=== PATIENT | female | born 1960 | race Caucasian/White ===

== ENCOUNTER 2016-09-29 11:27 | Outpatient (CLI) | payer OTHER ==
--- NOTE | 2016-10-02 15:25 | Mammography Report ---
DIGITAL SCREENING MAMMOGRAM: 09/29/2016 CLINICAL INDICATION: A 55-year-old with history of benign right breast biopsy, for screening. COMPARISON: 12/2014, 10/2013, 09/2012, 01/2011, 07/2009, 04/2008. TECHNIQUE: Routine CC and MLO projections were obtained of the breasts. FINDINGS: Parenchymal tissue within the breasts is predominantly fatty replaced. There are no domina nt masses, suspicious microcalcifications, or secondary signs of malignancy. In comparison to the pre vious studies, there are no significant changes. IMPRESSION: NO MAMMOGRAPHIC EVIDENCE OF MALIGNANCY. NO SIGNIFICANT INTERVAL CHANGES. RECOMMENDATION: Screening mammography is recommended annually. BIRADS category 1 - negative. STANDARD QUALIFYING STATEMENTS 1. This examination was reviewed with the aid of Computed-Aided Detection (CAD). 2. A negative or benign imaging report should not delay biopsy if clinically suspicious findings are present. Consider surgical consultation if warranted. More than 5% of cancers are not identified by i maging. 3. Dense breasts may obscure an underlying neoplasm. JOB #: [id number] EXT JOB #:[id number]
== END 2016-09-29 11:28 | disposition home or self-care (01) ==
LOC: DI.N 11:27
PROVIDERS: ATTEND Physician Assistant Medical
DX: Z12.31 Encounter for screening mammogram for malignant neoplasm of breast (principal)
CPT/HCPCS: 77067

== ENCOUNTER 2016-10-13 10:30 | Outpatient (CLI) | payer OTHER | END 2016-10-13 10:31 | disposition home or self-care (01) | LOC: LAB.WCP 10:30 | PROVIDERS: ATTEND Family Medicine | DX: N39.0 Urinary tract infection, site not specified (principal) | CPT/HCPCS: 87086 ==

== ENCOUNTER 2017-03-24 11:49 | Outpatient (CLI) | payer OTHER ==
--- NOTE | 2017-03-24 13:40 | XRAY Preliminary Report ---
Exam: XR SINUS COMPLETE IMPRESSION: Normal paranasal sinus radiography. [facility] SITE ID: [id number]
--- NOTE | 2017-03-24 13:40 | XRAY Report ---
EXAM: PARANASAL SINUS RADIOGRAPHY 4 VIEWS EXAM DATE: 03/24/2017. CLINICAL HISTORY: Sinusitis. COMPARISONS: None.. TECHNIQUE: Tigre Marks and both lateral views. FINDINGS: Bones: Normal. No fractures or bone lesions. Sinuses: Normal. No opacities or fluid levels. Mastoid Air Cells: Clear. Other: Normal. No soft tissue swelling. IMPRESSION: Normal paranasal sinus radiography. [facility] Referring Provider Line: [phone] SITE ID: [id number]
== END 2017-03-24 11:50 | disposition home or self-care (01) ==
LOC: DI 11:49
PROVIDERS: ATTEND Family Medicine
DX: J32.9 Chronic sinusitis, unspecified (principal)
CPT/HCPCS: 70220

== ENCOUNTER 2017-07-17 16:25 | Outpatient (CLI) | payer OTHER ==
--- NOTE | 2017-07-18 10:15 | MRI Report ---
EXAM: MRI LUMBAR SPINE WITHOUT CONTRAST EXAM DATE: 07/17/2017 05:04 PM. CLINICAL HISTORY: Low back pain. Sharp left lower extremity pain. COMPARISON: 09/06/2010. TECHNIQUE: Multiplanar, multisequence T1-weighted and fluid-sensitive sequences of the lumbar spine f rom T12 to S1 without contrast. Other: None. FINDINGS: Spinal Cord: The conus terminates at L1. The conus medullaris and cauda equina are unremarkable. Alignment: No change in alignment. Bone Marrow: Five oxw-ojk-[id number] lumbar vertebral bodies are assumed. Lumbar vertebral body heights are maintained. No acute marrow edema. Disk Levels/Facets: T12-L1 through L3-L4: Stable findings, no stenosis or disk herniation. L4-L5: No additional disk degeneration. Tiny posterior protrusion with annular fissure is unchanged. No developing stenosis. Negligible facet arthropathy. L5-S1: Stable moderately prominent degenerative disk disease. Shallow bulging annulus. Minimal margin al spurring. Patent central canal. Negligible foraminal narrowing. These findings are stable and ther e is no evidence for focal nerve root compression. Musculature: No acute edema or significant asymmetry. Other: None. IMPRESSION: No acute abnormality or significant change. No developing significant stenosis or focal n eural impingement to explain radiculopathy. Lumbar degenerative changes are stable, most prominent as previously noted at L5-S1. Comment: The following findings are so common in adults without low back pain that while we report th eir presence, they must be interpreted with caution and in the context of the clinical situation. (Re meghan Condek et al, Spine 2001) Prevalence of findings in patients without low back pain: Disk degeneration (any evidence): 92% Disk desiccation/T2 signal loss: 83% Disk height loss: 56% Disk bulge: 64% Disk protrusion: 32% Annular tear/high intensity zone: 38% [facility] Referring Provider Line: [phone] SITE ID: [id number]
== END 2017-07-17 16:26 | disposition home or self-care (01) ==
LOC: DI 16:25
PROVIDERS: ATTEND Physician Assistant Medical
DX: S39.012A Strain of muscle, fascia and tendon of lower back, initial encounter (principal)
CPT/HCPCS: 72148

== ENCOUNTER 2018-04-30 15:13 | Outpatient (CLI) | payer OTHER | END 2018-04-30 15:14 | disposition home or self-care (01) | LOC: SC 15:13 | PROVIDERS: ATTEND Internal Medicine Pulmonary Disease | DX: G47.33 Obstructive sleep apnea (adult) (pediatric) (principal); E66.9 Obesity, unspecified; Z68.33 Body mass index [BMI] 33.0-33.9, adult | CPT/HCPCS: 99203; 99212 ==

== ENCOUNTER 2018-05-19 19:30 | Outpatient (CLI) | payer OTHER | END 2018-05-19 23:59 | disposition home or self-care (01) | LOC: SC 19:30 | PROVIDERS: ATTEND Internal Medicine Pulmonary Disease | DX: G47.33 Obstructive sleep apnea (adult) (pediatric) (principal) | CPT/HCPCS: 95806 ==

== ENCOUNTER 2018-07-08 16:15 | Outpatient (CLI) | payer OTHER | END 2018-07-08 16:16 | disposition home or self-care (01) | LOC: SC 16:15 | PROVIDERS: ATTEND Nurse Practitioner Family | DX: G47.33 Obstructive sleep apnea (adult) (pediatric) (principal) | CPT/HCPCS: 99212; 99214 ==

== ENCOUNTER 2018-10-02 15:20 | Emergency (ER) | payer OTHER ==
[2018-10-02 15:39] VITALS: BP 163/86
--- NOTE | 2018-10-02 16:08 | ED Physician Documentation ---
History of Present Illness - Stated complaint Stated Complaint: CO EXPOSURE - Chief complaint Chief Complaint: General - History obtained from History obtained from: Patient, Family - History of Present Illness Timing: How many days ago (several) Pain level max: 4 Pain level now: 0 - Additonal information Additional information: 57-year-old female presents to the emergency department stating that her furnace was leaking carbon monoxide. She has had intermittent headaches over the past few days. She is currently asymptomatic. Nothing makes it better or worse. Her furnace is now repaired. 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 - Present Medications Home Medications: Ambulatory Orders Medication Instructions Recorded Confirmed Bupropion HCl [Wellbutrin] 100 mg PO DAILY 02/03/13 03/11/14 Hydrochlorothiazide 25 mg PO DAILY 02/03/13 03/11/14 Lansoprazole [Prevacid] 30 mg PO BID 02/03/13 03/11/14 Lisinopril [Prinivil] 20 mg PO BID 02/03/13 03/11/14 lamoTRIgine [LaMICtal] 200 mg PO DAILY 02/03/13 03/11/14 raNITIdine [Zantac] 300 mg PO BID 02/03/13 03/11/14 Zolpidem [Ambien] 5 DAILY PRN 01/26/14 03/11/14 Cholecalciferol (Vitamin D3) 1 tab DAILY 03/11/14 03/11/14 [Vitamin D-3] dexAMETHasone [Decadron] 4 mg PO DAILY #5 tablet 03/11/14 - Allergies Allergies/Adverse Reactions: Allergies Allergy/AdvReac Type Severity Reaction Status Date / Time No Known Drug Allergies Allergy Verified 10/02/18 15:38 - Social History Does the pt smoke?: No Smoking Status: Never smoker Does the pt drink ETOH?: Yes Does the pt have substance abuse?: No PD ED PE NORMAL - Vitals Vital signs reviewed: Yes - General General: Alert and oriented X 3, No acute distress - HEENT HEENT: Moist mucous membranes - Neck Neck: Supple, no meningeal sign - Derm Derm: Warm and dry - Neuro Neuro: Alert and oriented X 3 - Psych Psych: Normal mood, Normal affect Results - Vitals Vitals: Vital Signs - 24 hr 10/02/18 15:37 Temperature 37.2 C Heart Rate 86 Respiratory 18 Rate Blood Pressure 163/86 H O2 Saturation 99 Oxygen O2 Source Room air - Labs Labs: Laboratory Tests 10/02/18 15:49 VBG Total Hgb 12.9 VBG Oxyhemoglobin 63 L VBG Carboxyhemoglobin 1.4 VBG Methemoglobin 0.3 PD MEDICAL DECISION MAKING - ED course Complexity details: considered differential, d/w patient ED course: Patient is asymptomatic. Has a normal carbon monoxide level. No emergency medical condition at this time. Will follow-up with PCP as needed. Patient counseled regarding signs and symptoms for which I believe and urgent re- evaluation would be necessary. Patient with good understanding of and agreement to plan and is comfortable going home at this time This document was made in part using voice recognition software. While efforts are made to proofread this document, sound alike and grammatical errors may occur. Departure - Departure Disposition: 01 Home, Self Care Clinical Impression: Carbon monoxide exposure Condition: Good Instructions: ED CO Poisoning Follow-Up: Carlene Gómez PA-C [Primary Care Provider] - As Needed Comments: Return if you worsen. Your carbon monoxide levels are normal in your blood.
== END 2018-10-02 16:16 | disposition home or self-care (01) ==
LOC: ED 15:20
DX: Z77.29 Contact with and (suspected) exposure to other hazardous substances (principal); I10 Essential (primary) hypertension
CPT/HCPCS: 36415; 82375; 99282; 99283

== ENCOUNTER 2018-10-04 17:28 | Outpatient (CLI) | payer OTHER | END 2018-10-04 23:59 | disposition home or self-care (01) | LOC: LAB.R 17:28 | PROVIDERS: ATTEND Family Medicine | DX: R30.0 Dysuria (principal) | CPT/HCPCS: 87086; 87181 ==

== ENCOUNTER 2018-10-06 12:14 | Emergency (ER) | payer OTHER ==
--- NOTE | 2018-10-06 14:13 | ED Physician Documentation ---
History of Present Illness - Stated complaint Stated Complaint: FEMALE - Chief complaint Chief Complaint: General - History obtained from History obtained from: Patient - Additonal information Additional information: Patient is a 57-year-old female who was diagnosed with urinary tract infection 2 days ago started on Bactrim which she has been compliantly taking until earlier today. Patient reports mild improvement of dysuria and other urinary complaints, however, is now Experiencing worsening suprapubic tenderness, low back pain worse on the right, subjective fever, chills, generalized weakness and muscle aches. Patient reports nausea without vomiting. No changes in bowel movements. Patient also reports exposure to carbon monoxide last week and was tested for such which returned within normal limits. No further exposures. No other improving or worsening factors noted. Review of Systems Constitutional: reports: Fever, Chills, Myalgias GI: reports: Abdominal Pain, Nausea. denies: Vomiting, Diarrhea : reports: Dysuria, Frequency, Hesitancy Musculoskeletal: reports: Back pain Neurologic: reports: Generalized weakness. 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 - Present Medications Home Medications: Ambulatory Orders Medication Instructions Recorded Confirmed Hydrochlorothiazide 25 mg PO DAILY 02/03/13 10/06/18 Lansoprazole [Prevacid] 30 mg PO BID 02/03/13 10/06/18 Lisinopril [Prinivil] 20 mg PO BID 02/03/13 10/06/18 lamoTRIgine [LaMICtal] 200 mg PO DAILY 02/03/13 10/06/18 raNITIdine [Zantac] 300 mg PO BID 02/03/13 10/06/18 Cholecalciferol (Vitamin D3) 1 tab DAILY 03/11/14 10/06/18 [Vitamin D-3] - Allergies Allergies/Adverse Reactions: Allergies Allergy/AdvReac Type Severity Reaction Status Date / Time No Known Drug Allergies Allergy Verified 10/02/18 15:38 - Social History Does the pt smoke?: No Smoking Status: Never smoker Does the pt drink ETOH?: Yes Does the pt have substance abuse?: No PD ED PE NORMAL - Vitals Vital signs reviewed: Yes - General General: Alert and oriented X 3, No acute distress, Well developed/nourished - HEENT HEENT: Atraumatic, Moist mucous membranes - Neck Neck: Supple, no meningeal sign - Cardiac Cardiac: RRR, No murmur - Respiratory Respiratory: No respiratory distress, Clear bilaterally - Abdomen Abdomen: Soft, Non distended. No: Non tender (Extremely mild suprapubic tenderness) - Back Back: No: No CVA TTP (Right CVA tenderness, mild) - Derm Derm: Normal color, Warm and dry, No rash - Extremities Extremities: No deformity, No tenderness to palpate - Neuro Neuro: Alert and oriented X 3, No motor deficit, No sensory deficit - Psych Psych: Normal mood, Normal affect Results - Vitals Vitals: Vital Signs - 24 hr 10/06/18 10/06/18 12:19 14:55 Temperature 37.0 C 37.1 C Heart Rate 77 65 Respiratory 14 20 Rate Blood Pressure 151/71 H 139/76 H O2 Saturation 100 98 Oxygen O2 Source Room air - Labs Labs: Laboratory Tests 10/06/18 10/06/18 10/06/18 14:40 14:40 14:45 WBC 6.1 RBC 4.54 Hgb 12.8 Hct 39.1 MCV 86.1 MCH 28.2 MCHC 32.7 RDW 17.5 H Plt Count 230 MPV 9.6 Neut # (Auto) 4.2 Lymph # (Auto) 1.5 Lane # (Auto) 0.4 Eos # (Auto) 0.0 Baso # (Auto) 0.0 Absolute Nucleated RBC 0.00 Nucleated RBC % 0.0 Sodium 141 Potassium 3.5 Chloride 104 Carbon Dioxide 26 Anion Gap 11.0 BUN 17 Creatinine 1.1 H Estimated GFR (MDRD) 51 L Glucose 86 Lactic Acid 1.1 Calcium 9.7 Total Bilirubin 0.8 AST 24 ALT 20 Alkaline Phosphatase 61 Total Protein 7.3 Albumin 4.4 Globulin 2.9 Albumin/Globulin Ratio 1.5 Lipase 29 Urine Color Urine Clarity Urine pH Ur Specific [place] Urine Protein Urine Glucose (UA) Urine Ketones Urine Occult Blood Urine Nitrite Urine Bilirubin Urine Urobilinogen Ur Leukocyte Esterase Ur Microscopic Review Urine Culture Comments 10/06/18 14:45 WBC RBC Hgb Hct MCV MCH MCHC RDW Plt Count MPV Neut # (Auto) Lymph # (Auto) Lane # (Auto) Eos # (Auto) Baso # (Auto) Absolute Nucleated RBC Nucleated RBC % Sodium Potassium Chloride Carbon Dioxide Anion Gap BUN Creatinine Estimated GFR (MDRD) Glucose Lactic Acid Calcium Total Bilirubin AST ALT Alkaline Phosphatase Total Protein Albumin Globulin Albumin/Globulin Ratio Lipase Urine Color YELLOW Urine Clarity CLEAR Urine pH 6.5 Ur Specific [place] <=1.005 Urine Protein NEGATIVE Urine Glucose (UA) NEGATIVE Urine Ketones NEGATIVE Urine Occult Blood NEGATIVE Urine Nitrite NEGATIVE Urine Bilirubin NEGATIVE Urine Urobilinogen 0.2 (NORMAL) Ur Leukocyte Esterase NEGATIVE Ur Microscopic Review NOT INDICATED Urine Culture Comments NOT INDICATED PD MEDICAL DECISION MAKING - ED course Complexity details: reviewed results, re-evaluated patient, considered differential, d/w patient ED course: Patient was recently seen by primary care physician and diagnosed with UTI and started on Bactrim. Patient reports subjective fever and chills at home, as well as general myalgias and fatigue. Patient reports that urinary symptoms have improved. Physical exam is relatively unremarkable except for mild suprapubic tenderness consistent with UTI. Patient does have extremely mild right CVA tenderness and do have concern for possible pyelonephritis. Feel less likely that patient is expensing nephrolithiasis, other intra-abdominal infection, or pelvic issue at this time. Patient started on IV fluids, but did not require medications. Screening lab work returned unremarkable including no JUN, leukocytosis, elevation of lactic acid. Urinalysis also returned extremely unremarkable. Do feel that Bactrim is working appropriately. Patient remained afebrile and is otherwise hematologically stable. At this time, do not feel she requires IV antibiotics or hospitalization, but can continue oral antibiotics as prescribed at home. Discussed results and recommendations with patient including use of medications, other supportive cares, return precautions, appropriate follow-up. Patient voiced understanding and is comfortable with discharge plan. Departure - Departure Disposition: 01 Home, Self Care Clinical Impression: Urinary tract infection Condition: Good Instructions: ED UTI Cystitis Female Follow-Up: Carlene Gómez PA-C [Primary Care Provider] - Comments: Please continue antibiotics as prescribed, as well as other home medications. Recommend hydration with Powerade/Gatorade, healthy diet, rest, and follow-up with primary care physician in next 2 to 3 days. Return to ED sooner if experience worsening symptoms or have other concerns.
[2018-10-06] MEDS ORDERED: SODIUM CHLORIDE 0.9% 1,000 ML IV ONE (14:18)
[2018-10-06 14:52] LABS: BASOPHILS % (AUTO) 0.3 %; EOSINOPHILS % (AUTO) 0.3 %; HGB - HEMOGLOBIN 12.8 g/dL (12.0-16.0); LYMPHOCYTES # (AUTO) 1.5 10^3/uL (1.5-3.5); LYMPHOCYTES % (AUTO) 24.4 %; MEAN CORPUSCULAR HEMOGLOBIN 28.2 pg (27.0-31.0); MEAN CORPUSCULAR HGB CONC 32.7 g/dL (32.0-36.0); MEAN CORPUSCULAR VOLUME 86.1 fL (81.0-99.0); MEAN PLATELET VOLUME 9.6 fL (7.9-10.8); MONOCYTES # (AUTO) 0.4 10^3/uL (0.0-1.0); MONOCYTES % (AUTO) 6.1 %; NEUTROPHILS # (AUTO) 4.2 10^3/uL (1.5-6.6); NEUTROPHILS % (AUTO) 68.6 %; PLT - PLATELET COUNT 230 10^3/uL (130-450); RED BLOOD COUNT 4.54 10^6/uL (4.20-5.40); RED CELL DISTRIBUTION WIDTH 17.5 % (12.0-15.0); WHITE BLOOD COUNT 6.1 x10^3/uL (4.8-10.8)
[2018-10-06 14:55] LABS: BILIRUBIN,URINE NEGATIVE (NEGATIVE); GLUCOSE, URINE (UA) NEGATIVE (NEGATIVE); KETONES,URINE (UA) NEGATIVE (NEGATIVE); LEUKOCYTE ESTERASE, URINE NEGATIVE (NEGATIVE); NITRITE,URINE NEGATIVE (NEGATIVE); OCCULT BLOOD,URINE NEGATIVE (NEGATIVE); PH,URINE 6.5 PH (5.0-7.5); PROTEIN,URINE NEGATIVE (NEGATIVE); UROBILINOGEN,URINE 0.2 (NORMAL) E.U./dL (NORMAL)
[2018-10-06 14:56] LABS: CLARITY,URINE CLEAR (CLEAR)
[2018-10-06 15:11] LABS: ALBUMIN 4.4 g/dL (3.2-5.5); ALBUMIN/GLOBULIN RATIO 1.5 (1.0-2.2); BILIRUBIN,TOTAL 0.8 mg/dL (0.2-1.0); CALCIUM 9.7 mg/dL (8.5-10.3); CREATININE 1.1 mg/dL (0.4-1.0); TOTAL PROTEIN 7.3 g/dL (6.7-8.2)
[2018-10-06 15:52] VITALS: BP 140/77
== END 2018-10-06 16:03 | disposition home or self-care (01) ==
LOC: ED 12:14
DX: N39.0 Urinary tract infection, site not specified (principal); I10 Essential (primary) hypertension
CPT/HCPCS: 36415; 80053; 81001; 81003; 83605; 83690; 85025; 87040; 87086; 96360; 99284

== ENCOUNTER 2019-03-17 10:24 | Outpatient (CLI) | payer OTHER ==
[2019-03-17 12:04] LABS: BASOPHILS % (AUTO) 0.7 %; EOSINOPHILS % (AUTO) 0.7 %; HGB - HEMOGLOBIN 11.7 g/dL (12.0-16.0); LYMPHOCYTES # (AUTO) 1.4 10^3/uL (1.5-3.5); MEAN CORPUSCULAR HEMOGLOBIN 26.7 pg (27.0-31.0); MEAN CORPUSCULAR HGB CONC 31.4 g/dL (32.0-36.0); MEAN CORPUSCULAR VOLUME 85.2 fL (81.0-99.0); MEAN PLATELET VOLUME 10.4 fL (7.9-10.8); MONOCYTES # (AUTO) 0.4 10^3/uL (0.0-1.0); MONOCYTES % (AUTO) 6.6 %; NEUTROPHILS % (AUTO) 67.8 %; PLT - PLATELET COUNT 248 10^3/uL (130-450); RED BLOOD COUNT 4.38 10^6/uL (4.20-5.40); RED CELL DISTRIBUTION WIDTH 15.2 % (12.0-15.0); WHITE BLOOD COUNT 5.9 x10^3/uL (4.8-10.8)
[2019-03-17 12:30] LABS: ALBUMIN 4.3 g/dL (3.2-5.5); ALBUMIN/GLOBULIN RATIO 1.4 (1.0-2.2); ALKALINE PHOSPHATASE 61 IU/L (42-121); ALT ALANINE AMINOTRANSFERASE 18 IU/L (10-60); AST ASPARTATE AMINOTRANSFERASE 21 IU/L (10-42); BILIRUBIN,TOTAL 0.9 mg/dL (0.2-1.0); BUN - BLOOD UREA NITROGEN 17 mg/dL (6-20); CALCIUM 9.4 mg/dL (8.5-10.3); CARBON DIOXIDE - CO2 28 mmol/L (21-32); CHLORIDE 104 mmol/L (101-111); CHOL/HDL RATIO 3.5 (<4.4); CHOLESTEROL 220 mg/dL; GFR - MDRD 57 (>89); GLUCOSE 92 mg/dL (70-100); HDL CHOLESTEROL 63 mg/dL; LDL CHOLESTEROL,CALCULATED 145 mg/dL; LDL/HDL RATIO 2.3 (<4.4); SODIUM 140 mmol/L (135-145); TOTAL PROTEIN 7.3 g/dL (6.7-8.2); VLDL CHOLESTEROL 12 mg/dL
== END 2019-03-17 23:59 | disposition home or self-care (01) ==
LOC: LAB.WCP 10:24
PROVIDERS: ATTEND Physician Assistant Medical
DX: Z00.00 Encounter for general adult medical examination without abnormal findings (principal)
CPT/HCPCS: 36415; 80053; 80061; 83721; 84443; 85025

== ENCOUNTER 2019-08-13 15:43 | Outpatient (CLI) | payer OTHER ==
[2019-08-13 18:46] LABS: BASOPHILS # (AUTO) 0.1 10^3/uL (0.0-0.1); BASOPHILS % (AUTO) 0.7 %; EOSINOPHILS # (AUTO) 0.1 10^3/uL (0.0-0.7); EOSINOPHILS % (AUTO) 0.9 %; HGB - HEMOGLOBIN 10.4 g/dL (12.0-16.0); LYMPHOCYTES # (AUTO) 2.3 10^3/uL (1.5-3.5); LYMPHOCYTES % (AUTO) 31.4 %; MEAN CORPUSCULAR HEMOGLOBIN 24.5 pg (27.0-31.0); MEAN CORPUSCULAR HGB CONC 31.3 g/dL (32.0-36.0); MEAN CORPUSCULAR VOLUME 78.3 fL (81.0-99.0); MEAN PLATELET VOLUME 10.5 fL (7.9-10.8); MONOCYTES # (AUTO) 0.5 10^3/uL (0.0-1.0); NEUTROPHILS # (AUTO) 4.4 10^3/uL (1.5-6.6); NEUTROPHILS % (AUTO) 59.7 %; PLT - PLATELET COUNT 305 10^3/uL (130-450); RED BLOOD COUNT 4.24 10^6/uL (4.20-5.40); RED CELL DISTRIBUTION WIDTH 15.9 % (12.0-15.0); WHITE BLOOD COUNT 7.4 x10^3/uL (4.8-10.8)
[2019-08-13 19:00] LABS: ALBUMIN 4.2 g/dL (3.2-5.5); ALBUMIN/GLOBULIN RATIO 1.5 (1.0-2.2); ALKALINE PHOSPHATASE 70 IU/L (42-121); ALT ALANINE AMINOTRANSFERASE 19 IU/L (10-60); AST ASPARTATE AMINOTRANSFERASE 21 IU/L (10-42); BILIRUBIN,TOTAL 0.5 mg/dL (0.2-1.0); BUN - BLOOD UREA NITROGEN 24 mg/dL (6-20); CALCIUM 9.5 mg/dL (8.5-10.3); CARBON DIOXIDE - CO2 27 mmol/L (21-32); CHLORIDE 102 mmol/L (101-111); CHOLESTEROL 242 mg/dL; CREATININE 0.8 mg/dL (0.4-1.0); GLUCOSE 77 mg/dL (70-100); HDL CHOLESTEROL 61 mg/dL; LDL CHOLESTEROL,CALCULATED 154 mg/dL; LDL/HDL RATIO 2.5 (<4.4); SODIUM 139 mmol/L (135-145); VLDL CHOLESTEROL 27 mg/dL
== END 2019-08-13 23:59 | disposition home or self-care (01) ==
LOC: LAB.WCP 15:43
PROVIDERS: ATTEND Family Medicine
DX: R00.2 Palpitations (principal)
CPT/HCPCS: 36415; 80053; 80061; 81599; 82553; 83721; 84443; 84484; 85025; 85379

== ENCOUNTER 2019-08-18 08:07 | Outpatient (CLI) | payer OTHER ==
--- NOTE | 2019-08-18 09:21 | XRAY Report ---
Reason: PALPITATIONS Procedure Date: 08/18/2019 Accession Number: [id number] / [id number] Procedure: WCP - Chest 2 View X-Ray CPT Code: 08887 Final Report FULL RESULT: PROCEDURE: Chest 2 View X-Ray INDICATIONS: PALPITATIONS TECHNIQUE: 2 view(s) of the chest. COMPARISON: None. FINDINGS: Surgical changes and devices: None. Lungs and pleura: No pleural effusions or pneumothorax. Lungs are clear. Mediastinum: Mediastinal contours are normal. Heart size is normal. Bones and chest wall: No suspicious bony abnormalities. Soft tissues appear unremarkable. IMPRESSION: No acute cardiopulmonary pathology. Reviewed by: Rajinder Joya MD on 08/18/2019 9:20 AM PDT Approved by: Rajinder Joya MD on 08/18/2019 9:20 AM PDT Station ID: [id number]
== END 2019-08-18 23:59 | disposition home or self-care (01) ==
LOC: DI.WCP 08:07
PROVIDERS: ATTEND Family Medicine
DX: R00.2 Palpitations (principal)
CPT/HCPCS: 71046

== ENCOUNTER 2020-02-12 09:57 | Outpatient (CLI) | payer OTHER ==
--- NOTE | 2020-02-12 12:44 | XRAY Report ---
PROCEDURE: Lumbar Spine 2 View INDICATIONS: LOW BACK PAIN TECHNIQUE: 4 views of the lumbar spine were acquired. COMPARISON: 07/17/2017 LS-spine MRI.. FINDINGS: Bones: 5 oei-obg-gsweziu vertebrae are present. There is normal bony alignment. No vertebral body compression fractures. No suspicious bony lesions. There is mild degenerative disc disease along th e thoracolumbar junction and lumbosacral spine to the L5-S1 level where moderate such degenerative ch raymond can be seen. Additionally at this level there is moderate facet osteoarthritis to the degree rosa t the combined influences of disc disease and facet degeneration likely produces mild to moderate spi nal and foraminal stenosis. Quality of visualization is somewhat limited by body habitus. Soft tissues: Overlying bowel gas pattern is normal. No suspicious soft tissue calcifications. IMPRESSION: No compression fracture found. No subluxation seen. Mild degenerative changes superiorly but there is mild to moderate likelihood of spinal and foraminal stenosis at the L5-S1 level from di sc disease and facet osteoarthritis. Reviewed by: Kayode Petit MD on 02/12/2020 12:43 PM PST Approved by: Kayode Petit MD on 02/12/2020 12:43 PM PST Station ID: [id number]
== END 2020-02-12 23:59 | disposition home or self-care (01) ==
LOC: DI.N 09:57
PROVIDERS: ATTEND Family Medicine
DX: M47.817 Spondylosis without myelopathy or radiculopathy, lumbosacral region (principal)

== ENCOUNTER 2020-03-22 08:00 | Outpatient (CLI) | payer OTHER | END 2020-03-22 23:59 | disposition home or self-care (01) | LOC: LAB.N 08:00 | PROVIDERS: ATTEND Nurse Practitioner | DX: R42 Dizziness and giddiness (principal) | CPT/HCPCS: 87275; 87276 ==

== ENCOUNTER 2020-03-22 15:41 | Emergency (ER) | payer OTHER ==
[2020-03-22] MEDS ORDERED: SODIUM CHLORIDE 0.9% 1,000 ML IV STA ×2 (15:58)
--- NOTE | 2020-03-22 16:00 | ED Physician Documentation ---
History of Present Illness - Stated complaint Stated Complaint: LIGHTHEADED, WEAK - Chief complaint Chief Complaint: Neuro - History obtained from History obtained from: Patient - History of Present Illness Timing: How many weeks ago (1) Pain level max: 4 Pain level now: 3 - Additonal information Additional information: 59-year-old female presents to the emergency department stating she feels generally weak over the past week. She states that if she stands for longer than about 15 to 20 minutes at a time she feels very tired and fatigued. Better with rest, worse with walking. No chest pain. No shortness of breath.She was recently placed on Bactrim for phlebitis in the left leg. No fevers. No chills . No cough. No congestion. Occasionally has mild nausea. Has intermittent headaches as well. These are not severe. They are gradual in onset and generally resolve on their own. No other medication changes. Review of Systems Ten Systems: 10 systems reviewed and negative Constitutional: denies: Fever, Chills Nose: denies: Rhinorrhea / runny nose, Congestion Throat: denies: Sore throat Cardiac: denies: Chest pain / pressure, Palpitations Respiratory: denies: Dyspnea, Cough GI: reports: Nausea. denies: Abdominal Pain, Vomiting, Constipation, Diarrhea : denies: Dysuria, Frequency, Hesitancy Skin: denies: Rash Musculoskeletal: denies: Neck pain, Back pain Neurologic: reports: Generalized weakness. 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 - Present Medications Home Medications: Ambulatory Orders Medication Instructions Recorded Confirmed Hydrochlorothiazide 25 mg PO DAILY 02/03/13 03/22/20 lamoTRIgine [LaMICtal] 225 mg PO DAILY 02/03/13 03/22/20 lisinopriL [Prinivil] 20 mg PO BID 02/03/13 03/22/20 Cholecalciferol (Vitamin D3) 1 tab DAILY 03/11/14 03/22/20 [Vitamin D-3] - Allergies Allergies/Adverse Reactions: Allergies Allergy/AdvReac Type Severity Reaction Status Date / Time No Known Drug Allergies Allergy Verified 03/22/20 15:48 - Social History Does the pt smoke?: No Smoking Status: Never smoker Does the pt drink ETOH?: Yes Does the pt have substance abuse?: No PD ED PE NORMAL - Vitals Vital signs reviewed: Yes - General General: Alert and oriented X 3, No acute distress, Well developed/nourished - HEENT HEENT: PERRL, Ears normal, Moist mucous membranes, Pharynx benign - Neck Neck: Supple, no meningeal sign, No bony TTP - Cardiac Cardiac: RRR, No murmur, Strong equal pulses - Respiratory Respiratory: No respiratory distress, Clear bilaterally - Abdomen Abdomen: Soft, Non tender, Non distended - Derm Derm: Warm and dry, No rash - Extremities Extremities: No edema, No calf tenderness / cord - Neuro Neuro: Alert and oriented X 3 - Psych Psych: Normal mood, Normal affect Results - Vitals Vitals: Vital Signs - 24 hr 03/22/20 03/22/20 03/22/20 15:45 16:13 17:00 Temperature 36.0 C L Heart Rate 77 74 75 Respiratory 14 15 17 Rate Blood Pressure 147/70 H 133/60 H 135/73 H O2 Saturation 100 100 99 03/22/20 03/22/20 18:12 19:26 Temperature 36.0 C L Heart Rate 77 83 Respiratory 14 16 Rate Blood Pressure 129/66 120/71 O2 Saturation 99 100 Oxygen O2 Source Room air - EKG (time done) 1555 Rate: Rate (enter#) (74) Rhythm: NSR [place]: Normal Intervals: Normal [place] QRS: Normal Ischemia: Normal ST segments - Labs Labs: Laboratory Tests 03/22/20 03/22/20 03/22/20 16:05 16:05 16:05 WBC 6.7 RBC 4.37 Hgb 10.8 L Hct 34.2 L MCV 78.3 L MCH 24.7 L MCHC 31.6 L RDW 18.0 H Plt Count 289 MPV 9.5 Neut # (Auto) 4.3 Lymph # (Auto) 1.9 [place] # (Auto) 0.4 Eos # (Auto) 0.0 Baso # (Auto) 0.0 Absolute Nucleated RBC 0.00 Nucleated RBC % 0.0 Sodium 140 Potassium 3.7 Chloride 101 Carbon Dioxide 24 Anion Gap 15.0 H BUN 23 H Creatinine 1.2 H Estimated GFR (MDRD) 46 L Glucose 91 Calcium 9.9 Phosphorus 3.5 Magnesium 2.4 Total Bilirubin 0.2 AST 20 ALT 16 Alkaline Phosphatase 72 Troponin I High Sens 2.6 Total Protein 7.7 Albumin 4.6 Globulin 3.1 Albumin/Globulin Ratio 1.5 Urine Color Urine Clarity Urine pH Ur Specific [place] Urine Protein Urine Glucose (UA) Urine Ketones Urine Occult Blood Urine Nitrite Urine Bilirubin Urine Urobilinogen Ur Leukocyte Esterase Ur Microscopic Review Urine Culture Comments 03/22/20 17:55 WBC RBC Hgb Hct MCV MCH MCHC RDW Plt Count MPV Neut # (Auto) Lymph # (Auto) [place] # (Auto) Eos # (Auto) Baso # (Auto) Absolute Nucleated RBC Nucleated RBC % Sodium Potassium Chloride Carbon Dioxide Anion Gap BUN Creatinine Estimated GFR (MDRD) Glucose Calcium Phosphorus Magnesium Total Bilirubin AST ALT Alkaline Phosphatase Troponin I High Sens Total Protein Albumin Globulin Albumin/Globulin Ratio Urine Color YELLOW Urine Clarity CLEAR Urine pH 6.0 Ur Specific [place] 1.010 Urine Protein NEGATIVE Urine Glucose (UA) NEGATIVE Urine Ketones NEGATIVE Urine Occult Blood NEGATIVE Urine Nitrite NEGATIVE Urine Bilirubin NEGATIVE Urine Urobilinogen 0.2 (NORMAL) Ur Leukocyte Esterase NEGATIVE Ur Microscopic Review NOT INDICATED Urine Culture Comments NOT INDICATED PD MEDICAL DECISION MAKING - ED course Complexity details: reviewed results, re-evaluated patient, considered differential, d/w patient ED course: No acute abnormalities on laboratory testing. Feels better after IV fluids. We will have her stop the Bactrim. No cellulitis on the legs. This could be contributing to her symptoms. Patient is well-appearing, nontoxic. Afebrile. No evidence of sepsis. Ambulating without difficulty. Steady gait. No neurological deficits. Normal cerebellar testing. Patient counseled regarding signs and symptoms for which I believe and urgent re-evaluation would be necessary. Patient with good understanding of and agreement to plan and is comfortable going home at this time This document was made in part using voice recognition software. While efforts are made to proofread this document, sound alike and grammatical errors may occur. Departure - Departure Disposition: 01 Home, Self Care Clinical Impression: Weakness, Dehydration Condition: Good Instructions: ED Dehydration Follow-Up: Carlene Gómez PA-C [Primary Care Provider] - Within 1 week Comments: Drink plenty of fluid. Return if you worsen. You can stop the bactrim as well. Discharge Date/Time: 03/22/20 19:31
[2020-03-22 16:10] LABS: BASOPHILS % (AUTO) 0.4 %; EOSINOPHILS % (AUTO) 0.6 %; HGB - HEMOGLOBIN 10.8 g/dL (12.0-16.0); LYMPHOCYTES # (AUTO) 1.9 10^3/uL (1.5-3.5); LYMPHOCYTES % (AUTO) 28.2 %; MEAN CORPUSCULAR HEMOGLOBIN 24.7 pg (27.0-31.0); MEAN CORPUSCULAR HGB CONC 31.6 g/dL (32.0-36.0); MEAN CORPUSCULAR VOLUME 78.3 fL (81.0-99.0); MEAN PLATELET VOLUME 9.5 fL (7.9-10.8); MONOCYTES # (AUTO) 0.4 10^3/uL (0.0-1.0); MONOCYTES % (AUTO) 6.3 %; NEUTROPHILS # (AUTO) 4.3 10^3/uL (1.5-6.6); NEUTROPHILS % (AUTO) 64.2 %; PLT - PLATELET COUNT 289 10^3/uL (130-450); RED BLOOD COUNT 4.37 10^6/uL (4.20-5.40); WHITE BLOOD COUNT 6.7 x10^3/uL (4.8-10.8)
[2020-03-22 16:26] LABS: ALBUMIN 4.6 g/dL (3.2-5.5); ALBUMIN/GLOBULIN RATIO 1.5 (1.0-2.2); BILIRUBIN,TOTAL 0.2 mg/dL (0.2-1.0); CALCIUM 9.9 mg/dL (8.5-10.3); CREATININE 1.2 mg/dL (0.4-1.0); MAGNESIUM 2.4 mg/dL (1.7-2.8); PHOSPHORUS 3.5 mg/dL (2.5-4.6); TOTAL PROTEIN 7.7 g/dL (6.7-8.2)
[2020-03-22 18:07] LABS: BILIRUBIN,URINE NEGATIVE (NEGATIVE); GLUCOSE, URINE (UA) NEGATIVE (NEGATIVE); KETONES,URINE (UA) NEGATIVE (NEGATIVE); LEUKOCYTE ESTERASE, URINE NEGATIVE (NEGATIVE); NITRITE,URINE NEGATIVE (NEGATIVE); OCCULT BLOOD,URINE NEGATIVE (NEGATIVE); PROTEIN,URINE NEGATIVE (NEGATIVE); UROBILINOGEN,URINE 0.2 (NORMAL) E.U./dL (NORMAL)
[2020-03-22 18:21] LABS: CLARITY,URINE CLEAR (CLEAR)
[2020-03-22 19:28] VITALS: BP 120/71
== END 2020-03-22 19:31 | disposition home or self-care (01) ==
LOC: ED 15:41
DX: E86.0 Dehydration (principal); R53.1 Weakness; I10 Essential (primary) hypertension; R42 Dizziness and giddiness
CPT/HCPCS: 80053; 81001; 81003; 83735; 84100; 84484; 85025; 87086; 87275; 87276; 93005; 96360; 96361; 99284

== ENCOUNTER 2020-06-17 07:51 | Outpatient (CLI) | payer OTHER ==
[2020-06-17 11:59] LABS: BASOPHILS % (AUTO) 0.8 %; EOSINOPHILS # (AUTO) 0.5 10^3/uL (0.0-0.7); EOSINOPHILS % (AUTO) 9.1 %; HCT - HEMATOCRIT 34.1 % (37.0-47.0); HGB - HEMOGLOBIN 10.3 g/dL (12.0-16.0); LYMPHOCYTES # (AUTO) 1.5 10^3/uL (1.5-3.5); LYMPHOCYTES % (AUTO) 28.1 %; MEAN CORPUSCULAR HEMOGLOBIN 23.5 pg (27.0-31.0); MEAN CORPUSCULAR HGB CONC 30.2 g/dL (32.0-36.0); MEAN CORPUSCULAR VOLUME 77.9 fL (81.0-99.0); MEAN PLATELET VOLUME 9.7 fL (7.9-10.8); MONOCYTES # (AUTO) 0.3 10^3/uL (0.0-1.0); MONOCYTES % (AUTO) 6.3 %; NEUTROPHILS # (AUTO) 2.9 10^3/uL (1.5-6.6); NEUTROPHILS % (AUTO) 55.1 %; PLT - PLATELET COUNT 276 10^3/uL (130-450); RED BLOOD COUNT 4.38 10^6/uL (4.20-5.40); RED CELL DISTRIBUTION WIDTH 17.4 % (12.0-15.0); WHITE BLOOD COUNT 5.3 x10^3/uL (4.8-10.8)
[2020-06-17 12:33] LABS: % IRON SATURATION 5 % (20-50); ALBUMIN 4.5 g/dL (3.2-5.5); ALBUMIN/GLOBULIN RATIO 1.6 (1.0-2.2); ALKALINE PHOSPHATASE 72 IU/L (42-121); ALT ALANINE AMINOTRANSFERASE 18 IU/L (10-60); AST ASPARTATE AMINOTRANSFERASE 20 IU/L (10-42); BILIRUBIN,TOTAL 0.6 mg/dL (0.2-1.0); BUN - BLOOD UREA NITROGEN 15 mg/dL (6-20); CALCIUM 9.5 mg/dL (8.5-10.3); CARBON DIOXIDE - CO2 28 mmol/L (21-32); CHLORIDE 101 mmol/L (101-111); CHOL/HDL RATIO 4.3 (<4.4); CHOLESTEROL 234 mg/dL; CREATININE 0.9 mg/dL (0.4-1.0); GFR - MDRD 64 (>89); GLUCOSE 99 mg/dL (70-100); HDL CHOLESTEROL 54 mg/dL; IRON 25 ug/dL (28-170); LDL CHOLESTEROL,CALCULATED 152 mg/dL; LDL/HDL RATIO 2.8 (<4.4); POTASSIUM 3.8 mmol/L (3.5-5.0); SODIUM 139 mmol/L (135-145); TOTAL IRON BINDING CAPACITY 501 ug/dL (250-450); TOTAL PROTEIN 7.3 g/dL (6.7-8.2); TRANSFERRIN 358 mg/dL (192-382); TRIGLYCERIDES 139 mg/dL; VLDL CHOLESTEROL 28 mg/dL
[2020-06-17 12:50] LABS: THYROID STIMULATING HORMONE 2.56 uIU/mL (0.34-5.60)
== END 2020-06-17 23:59 | disposition home or self-care (01) ==
LOC: LAB.WCP 07:51
PROVIDERS: ATTEND Physician Assistant Medical
DX: Z00.00 Encounter for general adult medical examination without abnormal findings (principal); D64.9 Anemia, unspecified; F31.9 Bipolar disorder, unspecified
CPT/HCPCS: 36415; 80053; 80061; 80175; 82607; 82728; 82746; 83540; 83721; 84443; 84466; 85025

== ENCOUNTER 2020-07-02 08:00 | Outpatient (CLI) | payer OTHER ==
[2020-07-02 18:54] LABS: FECAL OCCULT BLOOD (FIT) NEGATIVE (NEGATIVE)
== END 2020-07-02 08:01 | disposition home or self-care (01) ==
LOC: LAB.R 08:00
PROVIDERS: ATTEND Physician Assistant Medical
DX: D64.9 Anemia, unspecified (principal)
CPT/HCPCS: 82274

== ENCOUNTER 2020-07-16 14:46 | Outpatient (CLI) | payer OTHER ==
--- NOTE | 2020-07-19 14:51 | Mammography Report ---
BILATERAL DIGITAL SCREENING MAMMOGRAM 3D/2D: 07/16/2020 CLINICAL: Routine screening. Comparison is made to exams dated: 09/29/2016 mammogram, 11/20/2013 mammogram, 01/14/2015 mammogram, mammogram, 10/15/2012 ultrasound, and 02/02/2011 mammogram - [facility]. The re are scattered fibroglandular elements in both breasts. No significant masses, calcifications, or other findings are seen in either breast. There has been no significant interval change. IMPRESSION: NEGATIVE There is no mammographic evidence of malignancy. A 1 year screening mammogram is recommended. This exam was interpreted at Station ID: [id number]. NOTE: For mammograms, a report in lay terms will be sent to the patient. Approximately 15% of breast malignancies will not be visualized mammographically. In the management of a palpable breast mass, a negative mammogram must not discourage biopsy of a clinically suspicious lesion. Electronically Signed By: Arnel Mijares acr/penrad:07/16/2020 17:25:13 ACR BI-RADS Category 1: Negative 3341F PARENCHYMAL PATTERN: (A) - The breast(s) demonstrate(s) scattered fibroglandular densities. BI-RADS CATEGORY: (1) - 1 RECOMMENDATION: (ANNUAL) - Recommend routine annual screening mammography. [id number] 1 year screening LATERALITY: (B)
== END 2020-07-16 14:47 | disposition home or self-care (01) ==
LOC: DI 14:46
DX: Z12.31 Encounter for screening mammogram for malignant neoplasm of breast (principal)

== ENCOUNTER 2020-07-30 11:59 | Outpatient (CLI) | payer OTHER ==
[2020-07-30] MEDS ORDERED: IOVERSOL 320 100 ML VIAL IVP ONE (12:46)
[2020-07-30 12:57] LABS: CALCIUM 9.7 mg/dL (8.5-10.3); POTASSIUM 3.4 mmol/L (3.5-5.0)
--- NOTE | 2020-07-30 13:19 | CT Report ---
PROCEDURE: ANGIO ABDOMEN W/WO INDICATIONS: RENAL ARTERY ANEURYSM CONTRAST: IV CONTRAST: Optiray 320 ml: 100 PO CONTRAST: *NO PO CONTRAST TECHNIQUE: After the administration of intravenous contrast, 2 and 5 mm sections acquired from the diaphragm to the iliac crests. 3-dimensional maximum intensity projection (MIP) coronal and sagittal reformats, a nd/or 3-dimensional volume rendering reformatting was then performed. For radiation dose reduction, the following was used: automated exposure control, adjustment of mA and/or kV according to patient size. COMPARISON: Ultrasound report dated 12/09/2015 which described a possible renal artery aneurysm on t he right. FINDINGS: Image quality: Excellent. Extravascular tissues: Lung bases are clear. Heart size is normal. Liver and spleen are normal in size. Multiple hepatic cysts are present. Gallbladder is partially contracted Biliary system is non dilated. Pancreas enhances normally. No adrenal nodules. Kidneys are normal in size and enhancemen t, without hydronephrosis. Rob fundoplication. Non-opacified bowel loops demonstrate normal wall thickness and caliber. No free fluid or air. No retroperitoneal or mesenteric adenopathy. No ventr al hernias. No suspicious bony abnormalities. No vertebral body compression fractures. Abdominal aorta: The abdominal aorta is widely patent with no significant stenosis, dissection, nor aneurysm. Mesenteric arteries: Celiac, superior mesenteric, and inferior mesenteric arteries are patent. Renal arteries: Single bilateral renal arteries are present. Right renal artery is patent. Mild calc ific origin stenosis of the left renal artery. There is an 18 mm diameter aneurysm at the trifurcatio n point of the right main renal artery without mural thrombus. IMPRESSION: 1. 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 Given its location, endovascular therapy is not i ndicated. Annual surveillance (MR angiography) as well as medical therapy (e.g., blood pressure contr ol) is recommended. Reviewed by: Amisha Hsieh MD on 07/30/2020 1:18 PM PDT Approved by: Amisha Hsieh MD on 07/30/2020 1:18 PM PDT Station ID: [id number]
== END 2020-07-30 12:00 | disposition home or self-care (01) ==
LOC: LAB 11:59
PROVIDERS: ATTEND Physician Assistant Medical
DX: I72.2 Aneurysm of renal artery (principal)
CPT/HCPCS: 36415; 74175; 80048; Q9967

== ENCOUNTER 2021-02-04 16:10 | Outpatient (CLI) | payer OTHER ==
--- NOTE | 2021-02-04 16:33 | XRAY Report ---
PROCEDURE: Ankle 3 View RT INDICATIONS: R ANKLE PX TECHNIQUE: 3 views of the ankle were acquired. COMPARISON: None FINDINGS: Bones: No fractures or dislocations. Ankle mortise is normally aligned. No suspicious bony lesions . Calcaneal spur is present. Soft tissues: No tibiotalar joint effusion. Achilles tendon appears normal. IMPRESSION: No visualized acute fracture or dislocation. However, occult injury cannot be excluded. Recommend short interval imaging follow-up in 7-10 days as clinically indicated for additional evalua tion. Reviewed by: Meli Hay MD on 02/04/2021 4:32 PM [facility] Approved by: Meli Hay MD on 02/04/2021 4:32 PM [facility] Station ID: [id number]
== END 2021-02-04 23:59 | disposition home or self-care (01) ==
LOC: DI.N 16:10
PROVIDERS: ATTEND Family Medicine
DX: M25.571 Pain in right ankle and joints of right foot (principal)

== ENCOUNTER 2021-06-14 13:30 | Outpatient (CLI) | payer OTHER | END 2021-06-14 13:31 | disposition home or self-care (01) | LOC: LAB 13:30 | PROVIDERS: ATTEND Physician Assistant | DX: R05.1 Acute cough (principal); Z20.822 Contact with and (suspected) exposure to COVID-19 ==

== ENCOUNTER 2021-06-23 01:54 | Outpatient (CLI) | payer OTHER | END 2021-06-23 01:55 | disposition critical access hospital (66) | LOC: EMS 01:54 | DX: R07.89 Other chest pain (principal); R06.02 Shortness of breath; R61 Generalized hyperhidrosis; R00.2 Palpitations; R11.0 Nausea | CPT/HCPCS: A0425; A0427 ==

== ENCOUNTER 2021-06-23 02:12 | Emergency (ER) | payer OTHER ==
[2021-06-23] MEDS ORDERED: ONDANSETRON 4 MG/2 ML VIAL IVP STA (02:30)
[2021-06-23 02:35] LABS: BASOPHILS % (AUTO) 0.6 %; EOSINOPHILS # (AUTO) 0.1 10^3/uL (0.0-0.7); HGB - HEMOGLOBIN 12.3 g/dL (12.0-16.0); LYMPHOCYTES # (AUTO) 1.8 10^3/uL (1.5-3.5); MEAN CORPUSCULAR HEMOGLOBIN 28.5 pg (27.0-31.0); MEAN CORPUSCULAR HGB CONC 33.2 g/dL (32.0-36.0); MEAN CORPUSCULAR VOLUME 85.8 fL (81.0-99.0); MEAN PLATELET VOLUME 9.6 fL (7.9-10.8); MONOCYTES # (AUTO) 0.4 10^3/uL (0.0-1.0); MONOCYTES % (AUTO) 6.2 %; NEUTROPHILS # (AUTO) 4.7 10^3/uL (1.5-6.6); NEUTROPHILS % (AUTO) 66.9 %; PLT - PLATELET COUNT 243 10^3/uL (130-450); RED BLOOD COUNT 4.31 10^6/uL (4.20-5.40); RED CELL DISTRIBUTION WIDTH 16.2 % (12.0-15.0); WHITE BLOOD COUNT 7.1 x10^3/uL (4.8-10.8)
--- NOTE | 2021-06-23 02:35 | ED Physician Documentation ---
PD HPI CHEST PAIN - Stated complaint Stated Complaint: CHEST PX - Chief complaint Chief Complaint: Cardiac - History obtained from History obtained from: Patient - Additional information Additional information: Patient is a 60-year-old female with a history significant for hypertension presenting for evaluation of chest pain. Patient went to bed without any issue and was woken up at 1 AM with feeling short of breath, clammy and an uneasy feeling. She tried to alleviate her symptoms by putting cold water on herself and started to have chest pain, midsternal and radiating between the shoulder blades feeling like a pressure. Denies worsening with exertion or taking a deep breath. Pain did not improve and patient called EMS. She was given aspirin and 3 nitro with improvement in her pain. She reports associated nausea. She reports having an episode of pain between her shoulder blades this afternoon while working that lasted for "some time" and resolved on its own.She denies a previous history of coronary artery disease. Denies recent stress testing.No recent surgery, leg swelling, leg pain, fever, cough, abdominal pain, vomiting or diarrhea. Review of Systems Constitutional: denies: Fever Nose: denies: Congestion Cardiac: reports: Chest pain / pressure. denies: Palpitations Respiratory: reports: Dyspnea. denies: Cough GI: reports: Nausea. 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 - Present Medications Home Medications: Ambulatory Orders Medication Instructions Recorded Confirmed hydroCHLOROthiazide 25 mg PO DAILY 02/03/13 06/23/21 [Hydrochlorothiazide] lamoTRIgine [LaMICtal] 225 mg PO DAILY 02/03/13 06/23/21 lisinopriL [Prinivil] 20 mg PO BID 02/03/13 06/23/21 Cholecalciferol (Vitamin D3) 1 tab DAILY 03/11/14 06/23/21 [Vitamin D-3] Calcium Carbonate [Calcium] 600 mg PO DAILY 06/23/21 06/23/21 Magnesium 250 mg PO DAILY 06/23/21 06/23/21 Multivitamin 1 tab PO DAILY 06/23/21 06/23/21 Pantoprazole Sodium 40 mg PO BID 06/23/21 06/23/21 Potassium Citrate [Potassium] 1 cap PO DAILY 06/23/21 06/23/21 Vitamin B Complex 1 tab PO DAILY 06/23/21 06/23/21 - Allergies Allergies/Adverse Reactions: Allergies Allergy/AdvReac Type Severity Reaction Status Date / Time No Known Drug Allergies Allergy Verified 03/22/20 15:48 - Social History Does the pt smoke?: No Smoking Status: Never smoker Does the pt drink ETOH?: Yes Does the pt have substance abuse?: No - Immunizations Immunizations are current?: Yes - POLST Patient has POLST: No PD ED PE NORMAL - General General: Alert and oriented X 3, No acute distress, Well developed/nourished - HEENT HEENT: Atraumatic, Moist mucous membranes - Neck Neck: Supple, no meningeal sign - Cardiac Cardiac: RRR, No murmur, Strong equal pulses - Respiratory Respiratory: No respiratory distress, Clear bilaterally - Abdomen Abdomen: Normal bowel sounds, Soft, Non tender, Non distended - Derm Derm: Normal color - Extremities Extremities: No deformity, No edema - Neuro Neuro: Alert and oriented X 3, No motor deficit, Normal speech - Psych Psych: Normal mood, Normal affect Results - Vitals Vitals: Vital Signs - 24 hr 06/23/21 06/23/21 06/23/21 02:19 02:59 03:16 Temperature 36.2 C L Heart Rate 83 88 73 Respiratory 22 14 12 Rate Blood Pressure 149/91 H 127/87 H O2 Saturation 98 96 97 06/23/21 06/23/21 06/23/21 04:17 05:30 06:02 Temperature 36.2 C L Heart Rate 77 65 70 Respiratory 17 17 14 Rate Blood Pressure 139/93 H 127/78 126/81 H O2 Saturation 96 96 96 Oxygen O2 Source Room air - EKG (time done) 0222 Rate: Rate (enter#) (87) Rhythm: NSR Ischemia: No: ST elevation c/w ischemia, T wave inversion Computer interpretation: Agree with computer - Labs Labs: Laboratory Tests 06/23/21 06/23/21 06/23/21 02:20 02:20 02:20 WBC 7.1 RBC 4.31 Hgb 12.3 Hct 37.0 MCV 85.8 MCH 28.5 MCHC 33.2 RDW 16.2 H Plt Count 243 MPV 9.6 Neut # (Auto) 4.7 Lymph # (Auto) 1.8 [place] # (Auto) 0.4 Eos # (Auto) 0.1 Baso # (Auto) 0.0 Absolute Nucleated RBC 0.00 Nucleated RBC % 0.0 D-Dimer Sodium 139 Potassium 3.3 L Chloride 102 Carbon Dioxide 24 Anion Gap 13.0 BUN 16 Creatinine 0.8 Estimated GFR (MDRD) 73 L Glucose 119 H Calcium 9.2 Total Bilirubin 0.5 AST 22 ALT 18 Alkaline Phosphatase 77 Troponin I High Sens 4.5 Total Protein 6.8 Albumin 4.0 Globulin 2.8 Albumin/Globulin Ratio 1.4 Lipase 42 06/23/21 06/23/21 02:20 05:15 WBC RBC Hgb Hct MCV MCH MCHC RDW Plt Count MPV Neut # (Auto) Lymph # (Auto) [place] # (Auto) Eos # (Auto) Baso # (Auto) Absolute Nucleated RBC Nucleated RBC % D-Dimer 211.2 Sodium Potassium Chloride Carbon Dioxide Anion Gap BUN Creatinine Estimated GFR (MDRD) Glucose Calcium Total Bilirubin AST ALT Alkaline Phosphatase Troponin I High Sens 3.5 Total Protein Albumin Globulin Albumin/Globulin Ratio Lipase PD MEDICAL DECISION MAKING - ED course Complexity details: reviewed results, re-evaluated patient, d/w patient, d/w family ED course: Patient is a 60-year-old female being evaluated for chest pain. She is low risk per the heart score. Her EKG is without signs of acute ischemia and troponin is negative x2.Her D-dimer is negative. I do not believe she has an aortic dissection. She is pain-free.She is aware of need for follow-up with her primary care doctor as well as return precautions. Departure - Departure Disposition: 01 Home, Self Care Clinical Impression: Chest pain Qualifiers: Chest pain type: unspecified Qualified Code(s): R07.9 - Chest pain, unspecified Condition: Stable Instructions: ED Chest Pain Atypical Unkn Cause Comments: Ritchie - You were evaluated for pain to your chest. At this time the exact cause of the pain is unclear but does not be related to a heart attack or blood clot in your lung Or another emergent condition. Fortunately it appears that the pain has improved. Please follow-up with your primary care doctor. If you have not had one In the last year, please discuss having a stress test doneWith your doctor. This is another way to check your heart. Please continue to rest and stay hydrated today. If anytime your symptoms return or you develop any new symptoms please return to the emergency department. Forms: Activity restrictions Discharge Date/Time: 06/23/21 06:17
[2021-06-23 02:45] LABS: ALBUMIN/GLOBULIN RATIO 1.4 (1.0-2.2); BILIRUBIN,TOTAL 0.5 mg/dL (0.2-1.0); CALCIUM 9.2 mg/dL (8.5-10.3); CREATININE 0.8 mg/dL (0.4-1.0); POTASSIUM 3.3 mmol/L (3.5-5.0); TOTAL PROTEIN 6.8 g/dL (6.7-8.2)
[2021-06-23] MEDS ORDERED: MORPHINE 2 MG/ML CARPUJECT IVP STA (03:27)
[2021-06-23] MEDS ORDERED: SODIUM CHLORIDE 0.9% 500 ML IV STA (03:27)
[2021-06-23 06:03] VITALS: BP 126/81
--- NOTE | 2021-06-23 07:43 | XRAY Report ---
PROCEDURE: Chest 1 View X-Ray INDICATIONS: Chest pain TECHNIQUE: One view of the chest was acquired. COMPARISON: 08/18/2019 FINDINGS: Surgical changes and devices: None. Lungs and pleura: No pleural effusions or pneumothorax. Lungs are clear. Mediastinum: Mediastinal contours appear normal. Is enlarged Bones and chest wall: No suspicious bony lesions. Overlying soft tissues appear unremarkable. IMPRESSION: No acute cardiopulmonary disease process. Reviewed by: Melisa Tapia MD, PhD on 06/23/2021 7:42 AM PDT Approved by: Melisa Tapia MD, PhD on 06/23/2021 7:42 AM PDT Station ID: [id number]
== END 2021-06-23 06:17 | disposition home or self-care (01) ==
LOC: EDUNIT# → EDBD → SUPCPDRO 02:12 → ED 02:12
DX: R07.9 Chest pain, unspecified (principal)
CPT/HCPCS: 36415; 80053; 83690; 84484; 85025; 85379; 93005; 96374; 96375; 99282

== ENCOUNTER 2021-06-25 09:53 | Outpatient (CLI) | payer OTHER ==
[2021-06-25 14:41] LABS: BASOPHILS % (AUTO) 0.7 %; EOSINOPHILS % (AUTO) 0.5 %; HCT - HEMATOCRIT 39.9 % (37.0-47.0); LYMPHOCYTES # (AUTO) 1.4 10^3/uL (1.5-3.5); LYMPHOCYTES % (AUTO) 23.1 %; MEAN CORPUSCULAR HEMOGLOBIN 28.6 pg (27.0-31.0); MEAN CORPUSCULAR HGB CONC 32.6 g/dL (32.0-36.0); MEAN CORPUSCULAR VOLUME 87.7 fL (81.0-99.0); MEAN PLATELET VOLUME 10.9 fL (7.9-10.8); MONOCYTES # (AUTO) 0.3 10^3/uL (0.0-1.0); MONOCYTES % (AUTO) 5.7 %; NEUTROPHILS # (AUTO) 4.1 10^3/uL (1.5-6.6); NEUTROPHILS % (AUTO) 69.7 %; PLT - PLATELET COUNT 250 10^3/uL (130-450); RED BLOOD COUNT 4.55 10^6/uL (4.20-5.40); RED CELL DISTRIBUTION WIDTH 16.5 % (12.0-15.0); WHITE BLOOD COUNT 5.8 x10^3/uL (4.8-10.8)
[2021-06-25 15:09] LABS: THYROID STIMULATING HORMONE 1.09 uIU/mL (0.34-5.60)
[2021-06-25 15:16] LABS: ALBUMIN 4.3 g/dL (3.2-5.5); ALBUMIN/GLOBULIN RATIO 1.3 (1.0-2.2); ALKALINE PHOSPHATASE 70 IU/L (42-121); ALT ALANINE AMINOTRANSFERASE 18 IU/L (10-60); AST ASPARTATE AMINOTRANSFERASE 27 IU/L (10-42); BILIRUBIN,TOTAL 1.1 mg/dL (0.2-1.0); BUN - BLOOD UREA NITROGEN 15 mg/dL (6-20); CALCIUM 9.6 mg/dL (8.5-10.3); CARBON DIOXIDE - CO2 30 mmol/L (21-32); CHLORIDE 100 mmol/L (101-111); CHOL/HDL RATIO 3.8 (<4.4); CHOLESTEROL 241 mg/dL; CREATININE 0.9 mg/dL (0.4-1.0); GFR - MDRD 64 (>89); GLUCOSE 83 mg/dL (70-100); HDL CHOLESTEROL 63 mg/dL; LDL CHOLESTEROL,CALCULATED 161 mg/dL; LDL/HDL RATIO 2.6 (<4.4); POTASSIUM 3.9 mmol/L (3.5-5.0); SODIUM 139 mmol/L (135-145); TOTAL PROTEIN 7.6 g/dL (6.7-8.2); TRIGLYCERIDES 84 mg/dL; VLDL CHOLESTEROL 17 mg/dL
== END 2021-06-25 09:54 | disposition home or self-care (01) ==
LOC: LAB.N 09:53
PROVIDERS: ATTEND Physician Assistant Medical
DX: Z00.00 Encounter for general adult medical examination without abnormal findings (principal)
CPT/HCPCS: 36415; 80053; 80061; 83721; 84443; 85025

== ENCOUNTER 2022-05-05 18:04 | Emergency (ER) | payer OTHER ==
[2022-05-05] MEDS ORDERED: HYDROmorphone 1 MG/ML CARPUJECT IVP STA (18:26)
--- NOTE | 2022-05-05 18:27 | ED Physician Documentation ---
PD HPI CHEST PAIN - Stated complaint Stated Complaint: CHEST PX/SOA/SHOULDER PX - Chief complaint Chief Complaint: Cardiac - History obtained from History obtained from: Patient - Additional information Additional information: She developed substernal chest pain radiating to the back at 4 PM today while driving. She has had similar pains before over the radiation to the back is new. She is short of breath with it and feels dizzy. No history of heart problems. 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 - Present Medications Home Medications: Ambulatory Orders Medication Instructions Recorded Confirmed hydroCHLOROthiazide 25 mg PO DAILY 02/03/13 06/23/21 [Hydrochlorothiazide] lamoTRIgine [LaMICtal] 225 mg PO DAILY 02/03/13 06/23/21 lisinopriL [Prinivil] 20 mg PO BID 02/03/13 06/23/21 Cholecalciferol (Vitamin D3) 1 tab DAILY 03/11/14 06/23/21 [Vitamin D-3] Calcium Carbonate [Calcium] 600 mg PO DAILY 06/23/21 06/23/21 Magnesium 250 mg PO DAILY 06/23/21 06/23/21 Multivitamin 1 tab PO DAILY 06/23/21 06/23/21 Pantoprazole Sodium 40 mg PO BID 06/23/21 06/23/21 Potassium Citrate [Potassium] 1 cap PO DAILY 06/23/21 06/23/21 Vitamin B Complex 1 tab PO DAILY 06/23/21 06/23/21 - Allergies Allergies/Adverse Reactions: Allergies Allergy/AdvReac Type Severity Reaction Status Date / Time No Known Drug Allergies Allergy Verified 05/05/22 18:19 - Social History Does the pt smoke?: No Smoking Status: Never smoker Does the pt drink ETOH?: Yes Does the pt have substance abuse?: No - Immunizations Immunizations are current?: Yes - POLST Patient has POLST: No PD ED PE NORMAL - Vitals Vital signs reviewed: Yes - General General: Alert and oriented X 3 (She appears slightly uncomfortable) - HEENT HEENT: PERRL, EOMI - Neck Neck: Supple, no meningeal sign, No bony TTP - Cardiac Cardiac: RRR, No murmur - Respiratory Respiratory: No respiratory distress, Clear bilaterally - Abdomen Abdomen: Non tender - Extremities Extremities: No edema, No calf tenderness / cord - Neuro Neuro: Alert and oriented X 3, Normal speech Results - Vitals Vitals: Vital Signs - 24 hr 05/05/22 05/05/22 05/05/22 18:17 18:48 19:18 Temperature 37.0 C Heart Rate 84 82 78 Respiratory 18 11 L 13 Rate Blood Pressure 153/92 H 152/93 H 152/93 H O2 Saturation 98 95 100 05/05/22 05/05/22 19:49 20:16 Temperature Heart Rate 80 74 Respiratory 16 14 Rate Blood Pressure 148/88 H 141/77 H O2 Saturation 98 100 Oxygen O2 Source Room air - EKG (time done) 1817 EKG releavant findings:: EKG personally interpreted by author of this note. Relevant findings are: Rate: Rate (enter#) (80) Rhythm: NSR Anderson: Normal Intervals: Normal ND QRS: Normal Ischemia: Normal ST segments - Labs Labs: Laboratory Tests 05/05/22 05/05/22 05/05/22 18:38 18:38 18:38 WBC 8.4 RBC 4.78 Hgb 14.2 Hct 42.8 MCV 89.5 MCH 29.7 MCHC 33.2 RDW 13.2 Plt Count 248 MPV 10.1 Neut # (Auto) 6.4 Lymph # (Auto) 1.4 L [place] # (Auto) 0.4 Eos # (Auto) 0.1 Baso # (Auto) 0.0 Absolute Nucleated RBC 0.00 Nucleated RBC % 0.0 Sodium 141 Potassium 3.1 L Chloride 103 Carbon Dioxide 26 Anion Gap 12.0 BUN 14 Creatinine 0.8 Estimated GFR (MDRD) 73 L Glucose 108 H Calcium 9.9 Total Bilirubin 0.5 AST 20 ALT 23 Alkaline Phosphatase 77 Troponin I High Sens 4.0 Total Protein 7.7 Albumin 4.5 Globulin 3.2 Albumin/Globulin Ratio 1.4 05/05/22 20:20 WBC RBC Hgb Hct MCV MCH MCHC RDW Plt Count MPV Neut # (Auto) Lymph # (Auto) [place] # (Auto) Eos # (Auto) Baso # (Auto) Absolute Nucleated RBC Nucleated RBC % Sodium Potassium Chloride Carbon Dioxide Anion Gap BUN Creatinine Estimated GFR (MDRD) Glucose Calcium Total Bilirubin AST ALT Alkaline Phosphatase Troponin I High Sens 4.0 Total Protein Albumin Globulin Albumin/Globulin Ratio PD Medical Decision Making - ED course ED course: 61-year-old woman with chest pain. Radiates to the back so concern for aortic pathology. CT angiography was done, negative with the exception of a known right renal artery aneurysm. This was discussed with the patient. She is aware of this diagnosis. She is aware of the need to follow-up with vascular for this. Serial troponins done and negative with no sign of ischemia on EKG. Departure - Departure Disposition: Home, Self Care Clinical Impression: Chest pain, Renal artery aneurysm Condition: Good Record reviewed to determine appropriate education?: Yes Instructions: ED Chest Pain Atypical Unkn Cause Comments: I discussed, the renal artery aneurysm may have grown just a bit since she last had it scanned in 2020. Talk with ALIZE Gómez about a referral to vascular surgery for that. As far as the chest pain, we did 2 sets of troponins in the emergency department which were normal/negative. There is no sign of aortic pathology or blood clots. Return for new or worsening symptoms.
[2022-05-05 18:45] LABS: BASOPHILS % (AUTO) 0.5 %; EOSINOPHILS # (AUTO) 0.1 10^3/uL (0.0-0.7); EOSINOPHILS % (AUTO) 0.6 %; HCT - HEMATOCRIT 42.8 % (37.0-47.0); HGB - HEMOGLOBIN 14.2 g/dL (12.0-16.0); LYMPHOCYTES # (AUTO) 1.4 10^3/uL (1.5-3.5); LYMPHOCYTES % (AUTO) 17.1 %; MEAN CORPUSCULAR HEMOGLOBIN 29.7 pg (27.0-31.0); MEAN CORPUSCULAR HGB CONC 33.2 g/dL (32.0-36.0); MEAN CORPUSCULAR VOLUME 89.5 fL (81.0-99.0); MEAN PLATELET VOLUME 10.1 fL (7.9-10.8); MONOCYTES # (AUTO) 0.4 10^3/uL (0.0-1.0); NEUTROPHILS # (AUTO) 6.4 10^3/uL (1.5-6.6); NEUTROPHILS % (AUTO) 76.6 %; PLT - PLATELET COUNT 248 10^3/uL (130-450); RED BLOOD COUNT 4.78 10^6/uL (4.20-5.40); RED CELL DISTRIBUTION WIDTH 13.2 % (12.0-15.0); WHITE BLOOD COUNT 8.4 x10^3/uL (4.8-10.8)
[2022-05-05] MEDS ORDERED: iohexoL-300 100 ML VIAL ONE (18:46)
[2022-05-05 18:56] LABS: ALBUMIN 4.5 g/dL (3.2-5.5); ALBUMIN/GLOBULIN RATIO 1.4 (1.0-2.2); BILIRUBIN,TOTAL 0.5 mg/dL (0.2-1.0); CALCIUM 9.9 mg/dL (8.5-10.3); CREATININE 0.8 mg/dL (0.4-1.0); POTASSIUM 3.1 mmol/L (3.5-5.0); TOTAL PROTEIN 7.7 g/dL (6.7-8.2)
[2022-05-05] MEDS ORDERED: iohexoL-300 100 ML VIAL IVP ONE (19:29)
--- NOTE | 2022-05-05 19:58 | CT Report ---
PROCEDURE: ANGIO CHEST W/WO INDICATIONS: chest/back pain, aorta protocol CONTRAST: 100 ML OMNI 300 AT 4 ML/SEC WITH 0 SEC AND SURESTART DELAYS. TECHNIQUE: After the administration of intravenous contrast, 2 mm axial images were acquired from the pulmonary apices to the posterior costophrenic angles during the arterial phase. In addition, 1 mm lung kernel and 5 mm soft tissue kernel reconstructions were performed. 3-dimensional coronal oblique maximum int ensity projection (MIP) reformats, 8 mm axial MIP, and 5 mm coronal and sagittal MPR reformats were t hen performed through the thorax. For radiation dose reduction, the following was used: automated exp osure control, adjustment of mA and/or kV according to patient size. COMPARISON: CT angiogram of the abdomen with and without contrast dated 07/30/2020. FINDINGS: Image quality: Excellent. Aorta and its attachments: Aorta is normal in caliber without dissection. Ascending aorta is 3.4 cm. There is classic three-vessel arch anatomy. Great vessel origins are widely patent. Transverse arch a nd descending thoracic aorta are of normal caliber. Celiac, SMA, and bilateral renal arteries are wid tania patent. Note is made of the presence of a large right renal artery aneurysm at the bottom of the study. It me asures approximately 1.8 cm. On the previous examination, it measured 1.8 cm. Pulmonary arteries: Pulmonary arteries are normal in size, and demonstrate no intraluminal filling d efects to suggest central pulmonary embolism. Lungs and pleura: Lungs are clear. No pleural effusions or pneumothorax. Central and peripheral ai rways are patent. Mediastinum: Heart size is normal, without pericardial effusion. No mediastinal or hilar adenopathy . Thoracic aorta is normal in caliber and enhancement. Esophagus is normal in caliber, without hiat al hernia. Bones and chest wall: No suspicious bony lesions. Ribs and thoracic spine appear intact throughout. No axillary or supraclavicular adenopathy. The thyroid is normal in size and there are no incident al findings. Abdomen: Numerous small hepatic cysts. Visualized upper abdominal solid organs appear normal in the early arterial phase of enhancement. IMPRESSION: 1. Unremarkable thoracic aorta. No aneurysm or dissection. 2. Large right renal artery aneurysm, measuring approximately 1.9 cm. 3. No evidence acute pulmonary emboli. 4. No evidence acute pulmonary process. Recommend referral to an endovascular specialist for consideration of treatment of the sizable right renal artery aneurysm. CLINICAL RECOMMENDATION STATEMENTS: In patients <35 years with an ITN detected on CT, MRI, or extrathyroidal ultrasound, the Committee re commends further evaluation with dedicated thyroid ultrasound if the nodule is "e1 cm and has no susp icious imaging features, and if the patient has normal life expectancy. In patients "e35 years with an ITN detected on CT, MRI, or extrathyroidal ultrasound, the Committee r ecommends further evaluation with dedicated thyroid ultrasound if the nodule is "e1.5 cm and has no s uspicious imaging features, and if the patient has normal life expectancy. (ACR, 2014) Reviewed by: Dinesh Silva MD on 05/05/2022 7:56 PM PST Approved by: Dinesh Silva MD on 05/05/2022 7:56 PM PST Station ID: [id number]
[2022-05-05 20:59] VITALS: BP 136/83
== END 2022-05-05 21:04 | disposition home or self-care (01) ==
LOC: ED 18:04
DX: R07.9 Chest pain, unspecified (principal); I72.2 Aneurysm of renal artery
CPT/HCPCS: 36415; 71275; 80053; 84484; 85025; 93005; 96374; 99283; 99284; J1170; Q9967

== ENCOUNTER 2022-07-18 14:39 | Outpatient (CLI) | payer OTHER | END 2022-07-18 14:40 | disposition home or self-care (01) | LOC: MAC.MOP 14:39 | PROVIDERS: ATTEND Physician Assistant Medical | DX: R00.2 Palpitations (principal) | CPT/HCPCS: 93242 ==

== ENCOUNTER 2022-08-03 10:30 | Outpatient (CLI) | payer OTHER | END 2022-08-03 10:31 | disposition home or self-care (01) | LOC: MAC.INF 10:30 | PROVIDERS: ATTEND Physician Assistant Medical | DX: I47.1 Supraventricular tachycardia (principal); I49.1 Atrial premature depolarization; I49.3 Ventricular premature depolarization | CPT/HCPCS: 93244 ==

== ENCOUNTER 2022-11-28 08:00 | Outpatient (CLI) | payer OTHER | END 2022-11-28 23:59 | disposition home or self-care (01) | LOC: LAB.WCP 08:00 | PROVIDERS: ATTEND Physician Assistant Medical | DX: R10.9 Unspecified abdominal pain (principal) | CPT/HCPCS: 87086 ==

== ENCOUNTER 2022-12-04 10:43 | Outpatient (CLI) | payer OTHER ==
[2022-12-04 11:59] LABS: BASOPHILS % (AUTO) 0.6 %; EOSINOPHILS % (AUTO) 0.6 %; HGB - HEMOGLOBIN 14.1 g/dL (12.0-16.0); LYMPHOCYTES # (AUTO) 1.9 10^3/uL (1.5-3.5); LYMPHOCYTES % (AUTO) 27.1 %; MEAN CORPUSCULAR HEMOGLOBIN 30.7 pg (27.0-31.0); MEAN CORPUSCULAR HGB CONC 33.6 g/dL (32.0-36.0); MEAN CORPUSCULAR VOLUME 91.5 fL (81.0-99.0); MEAN PLATELET VOLUME 9.6 fL (7.9-10.8); MONOCYTES # (AUTO) 0.4 10^3/uL (0.0-1.0); MONOCYTES % (AUTO) 5.4 %; NEUTROPHILS # (AUTO) 4.5 10^3/uL (1.5-6.6); PLT - PLATELET COUNT 230 10^3/uL (130-450); RED BLOOD COUNT 4.59 10^6/uL (4.20-5.40); RED CELL DISTRIBUTION WIDTH 13.4 % (12.0-15.0); WHITE BLOOD COUNT 6.9 x10^3/uL (4.8-10.8)
[2022-12-04 12:18] LABS: ALBUMIN 4.6 g/dL (3.2-5.5); ALBUMIN/GLOBULIN RATIO 1.8 (1.0-2.2); ALKALINE PHOSPHATASE 74 IU/L (42-121); ALT ALANINE AMINOTRANSFERASE 21 IU/L (10-60); AST ASPARTATE AMINOTRANSFERASE 20 IU/L (10-42); BILIRUBIN,TOTAL 0.7 mg/dL (0.2-1.0); BUN - BLOOD UREA NITROGEN 19 mg/dL (6-20); CALCIUM 9.9 mg/dL (8.5-10.3); CARBON DIOXIDE - CO2 33 mmol/L (21-32); CHLORIDE 104 mmol/L (101-111); CHOL/HDL RATIO 4.3 (<4.4); CHOLESTEROL 250 mg/dL; GFR - MDRD 56 (>89); GLUCOSE 83 mg/dL (74-104); HDL CHOLESTEROL 58 mg/dL; LDL CHOLESTEROL,CALCULATED 161 mg/dL; LDL/HDL RATIO 2.8 (<4.4); POTASSIUM 3.6 mmol/L (3.5-4.5); SODIUM 142 mmol/L (135-145); TOTAL PROTEIN 7.2 g/dL (6.4-8.9); TRIGLYCERIDES 155 mg/dL (48-352); VLDL CHOLESTEROL 31 mg/dL
[2022-12-04 12:30] LABS: THYROID STIMULATING HORMONE 2.01 uIU/mL (0.34-5.60)
== END 2022-12-04 10:44 | disposition home or self-care (01) ==
LOC: LAB.N 10:43
PROVIDERS: ATTEND Physician Assistant Medical
DX: Z00.00 Encounter for general adult medical examination without abnormal findings (principal); R10.9 Unspecified abdominal pain
CPT/HCPCS: 36415; 80053; 80061; 83721; 84443; 85025; 87086

== ENCOUNTER 2023-01-05 15:06 | Outpatient (CLI) | payer OTHER ==
--- NOTE | 2023-01-05 17:27 | DEXA Report ---
PROCEDURE: Dexa Spine and/or Hip INDICATIONS: POST MENOPAUSAL TECHNIQUE: Dual energy x-ray absorptiometry (DXA) was performed on a [employer] System. Regions measur ed are the AP Spine, femoral neck, and if needed forearm. COMPARISON: DEXA scan on 01/14/2015 FINDINGS: Lumbar Spine (L1-L4): Bone Mineral Density 0.828 g/cm/cm,T score -2.9. Z score -2.7. Since the most recent prior study, th ere has been a statistically significant increase in bone mineral density by 20.2 percent. Left Femoral Neck: Bone Mineral Density 0.732 g/cm/cm, T score -2.2. Z score -1.6. Since the most recent prior study, th ere has been a statistically significant decrease in bone mineral density by 11.9 percent. (T score greater or equal to -1.0: NORMAL) (T score from -1.1 to -2.4: OSTEOPENIA) (T score less than or equal to -2.5 to: OSTEOPOROSIS) Impression: 1. By WHO criteria, this patient has osteoporosis of the lumbar spine. Interval statistical increase in bone mineral density of the lumbar spine by 20.2%. 2. By WHO criteria, this patient has low bone density (osteopenia) of the femoral neck. Interval stat istical decrease in bone mineral density of the hip by 11.9%. Patients with diagnosis of osteoporosis or osteopenia should have regular bone mineral density assess ment. For those eligible for Medicare, routine testing is allowed once every 2 years. Testing frequ ency can be increased for patients who have rapidly progressing disease or for those who are receivin g medical therapy to restore bone mass. Reviewed by: Karley Sanchez MD on 01/05/2023 5:24 PM PST Approved by: Karley Sanchez MD on 01/05/2023 5:24 PM PST Station ID: [id number]
== END 2023-01-05 15:07 | disposition home or self-care (01) ==
LOC: DI 15:06
PROVIDERS: ATTEND Physician Assistant Medical
DX: M81.0 Age-related osteoporosis without current pathological fracture (principal); Z78.0 Asymptomatic menopausal state

== ENCOUNTER 2023-02-13 15:08 | Outpatient (CLI) | payer OTHER ==
--- NOTE | 2023-02-13 16:56 | XRAY Report ---
PROCEDURE: Ankle 3 View BILAT INDICATIONS: FOOT AND ANKLE PAIN TECHNIQUE: 3 views of the ankle were acquired. COMPARISON: Same day additional right foot views. Right ankle radiographs 02/04/2021.. FINDINGS: Bones: No fractures or dislocations. Small plantar calcaneal spurs. Mild degenerative changes in th e midfoot. Overall similar to 2020. Ankle mortise is normally aligned. No suspicious bony lesions. Soft tissues: No tibiotalar joint effusion. Achilles tendon appears normal. IMPRESSION: No fracture identified. Mild degenerative changes in the midfoot. Reviewed by: Kostas Rick MD on 02/13/2023 4:55 PM PST Approved by: Kostas Rick MD on 02/13/2023 4:55 PM PST Station ID: [id number]
--- NOTE | 2023-02-14 16:53 | XRAY Report ---
PROCEDURE: Foot 2 View BILAT INDICATIONS: FOOT AND ANKLE PAIN TECHNIQUE: 2 views of the right and left foot were acquired. COMPARISON: None. FINDINGS: Bones: No fractures or dislocations. No suspicious bony lesions. Degenerative changes of the inte rphalangeal joints. The right foot has a plantar calcaneal spur. Soft tissues: No suspicious soft tissue calcifications or masses. IMPRESSION: No acute bony abnormality. Reviewed by: Arnel Mijares MD on 02/14/2023 4:51 PM [facility] Approved by: Arnel Mijares MD on 02/14/2023 4:51 PM [facility] Station ID: [id number]
== END 2023-02-13 15:09 | disposition home or self-care (01) ==
LOC: DI 15:08
PROVIDERS: ATTEND Physician Assistant Medical
DX: M19.071 Primary osteoarthritis, right ankle and foot (principal); M19.072 Primary osteoarthritis, left ankle and foot

== ENCOUNTER 2023-08-03 08:35 | Emergency (ER) | payer OTHER ==
--- NOTE | 2023-08-03 09:21 | ED Physician Documentation ---
PD HPI FOCAL NEURO - Stated complaint Stated Complaint: FACE NUMB - Chief complaint Chief Complaint: Neuro - History obtained from History obtained from: Patient - History of Present Illness Timing - onset: Yesterday Timing - duration: Days (1) Severity of deficit: Mild Numbness: Face, Left Associated symptoms: Headache (States had a mild headache yesterday, none now). No: Nausea / vomiting, Seizure, Syncope, Fall, Head injury, Chest pain, Neck pain, Back pain, Fever Baseline status: positive: A&OX3, ambulatory, indep - Additional information Additional information: 62-year-old female presents to the emergency department stating that yesterday she noted the left side of her face felt "tingly" and numb. She states that it felt more numb today. Denies any difficulties with speech or swallowing. No facial droop. No arm or leg involvement. No trunk involvement. No changes in taste. No changes in hearing. Review of Systems Constitutional: denies: Fever, Chills Nose: denies: Rhinorrhea / runny nose, Congestion GI: denies: Vomiting, Diarrhea Skin: denies: Rash Musculoskeletal: denies: Neck pain, Back pain Neurologic: denies: Focal weakness, Confused, Altered mental status, Head injury 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, EGD /INVESTMENT ADVISOR: Tubal ligation - Present Medications Home Medications: Ambulatory Orders Medication Instructions Recorded Confirmed hydroCHLOROthiazide 25 mg PO DAILY 02/03/13 08/03/23 [Hydrochlorothiazide] lamoTRIgine [LaMICtal] 225 mg PO DAILY 02/03/13 08/03/23 Cholecalciferol (Vitamin D3) 1 tab DAILY 03/11/14 08/03/23 [Vitamin D-3] Calcium Carbonate [Calcium] 600 mg PO DAILY 06/23/21 08/03/23 Magnesium 250 mg PO DAILY 06/23/21 08/03/23 Multivitamin 1 tab PO DAILY 06/23/21 08/03/23 Pantoprazole Sodium 40 mg PO BID 06/23/21 08/03/23 Vitamin B Complex 1 tab PO DAILY 06/23/21 08/03/23 Metoprolol Succinate [Toprol Xl] 50 mg PO BID 08/03/23 08/03/23 - Allergies Allergies/Adverse Reactions: Allergies Allergy/AdvReac Type Severity Reaction Status Date / Time No Known Drug Allergies Allergy Verified 08/03/23 08:41 - Social History Does the pt smoke?: No Smoking Status: Never smoker Does the pt drink ETOH?: Yes Does the pt have substance abuse?: No - Immunizations Immunizations are current?: Yes - POLST Patient has POLST: No PD ED PE NORMAL - Vitals Vital signs reviewed: Yes - General General: Alert and oriented X 3, No acute distress - HEENT HEENT: PERRL, EOMI, Ears normal, Moist mucous membranes, Pharynx benign - Neck Neck: Supple, no meningeal sign - Cardiac Cardiac: RRR, Strong equal pulses - Respiratory Respiratory: No respiratory distress, Clear bilaterally - Abdomen Abdomen: Soft, Non tender, Non distended - Back Back: No spinal TTP - Derm Derm: Warm and dry - Neuro Neuro: Alert and oriented X 3, architect marine 2-12 intact, No motor deficit, Normal speech, Other (Mild decrease sensation over the left side of the face. Otherwise symmetrical movement of the face. Symmetrical movement of the eyebrows. Symmetrical smile. Normal speech.) Eye Opening: Spontaneous Motor: Obeys Commands Verbal: Oriented GCS Score: 15 - Psych Psych: Normal mood, Normal affect NIHSS - Time Time: 09:00 - Level of Consciousness Level of consciousness: (0) Alert, Keenly responsive LOC Questions: (0) Answers both Q's correct LOC Commands: (0) Performs both correctly - Gaze Best Gaze: (0) Normal - Visual Visual: (0) No loss - Facial Palsy Facial Palsy: (0) Normal, symmetrical movement - Motor Arms (both separate) Motor Arm (right): (0) No drift Motor Arm (left): (0) No drift - Motor Legs (both separate) Motor Leg (right): (0) No drift Motor Leg (left): (0) No drift - Limb Ataxia Limb Ataxia: (0) Absent - Sensory Sensory: (1) Ceqq-kp-wpqtpufz loss - Best Language Best Language: (0) No aphasia - Dysarthria Dysarthria: (0) Normal - Extinction and Inattention (formally neg Extinction and inattention: (0) No abnormality - Total Score/Results Total Score/Result: 1 Results - Vitals Vitals: Vital Signs - 24 hr 08/03/23 08/03/23 08/03/23 08:41 09:42 09:47 Temperature 36.5 C Heart Rate 54 L 57 L 56 L Respiratory 18 14 15 Rate Blood Pressure 166/74 H 171/99 H 171/99 H O2 Saturation 98 98 98 08/03/23 08/03/23 08/03/23 10:30 11:15 11:40 Temperature Heart Rate 59 L 55 L 63 Respiratory 15 15 11 L Rate Blood Pressure 169/99 H 164/91 H 156/87 H O2 Saturation 100 91 L 97 08/03/23 08/03/23 08/03/23 12:21 13:00 13:30 Temperature Heart Rate 77 63 54 L Respiratory 15 13 16 Rate Blood Pressure 106/93 H O2 Saturation 92 95 93 08/03/23 08/03/23 08/03/23 14:00 14:30 15:00 Temperature Heart Rate 63 61 57 L Respiratory 11 L 15 15 Rate Blood Pressure O2 Saturation 93 92 90 L 08/03/23 17:00 Temperature Heart Rate 72 Respiratory 15 Rate Blood Pressure 149/86 H O2 Saturation 96 Oxygen O2 Source Room air - EKG (time done) 0918 EKG releavant findings:: EKG personally interpreted by author of this note. Relevant findings are: Rate: Rate (enter#) (58) Rhythm: NSR [place]: LAD Intervals: Prolonged [place] QRS: Normal Ischemia: Normal ST segments - Labs Labs: Laboratory Tests 08/03/23 08/03/23 09:25 09:35 WBC 7.0 RBC 4.63 Hgb 14.1 Hct 42.4 MCV 91.6 MCH 30.5 MCHC 33.3 RDW 13.0 Plt Count 222 MPV 9.9 Neut # (Auto) 4.8 Lymph # (Auto) 1.7 [place] # (Auto) 0.4 Eos # (Auto) 0.1 Baso # (Auto) 0.0 Absolute Nucleated RBC 0.00 Nucleated RBC % 0.0 Sodium 140 Potassium 3.4 L Chloride 102 Carbon Dioxide 33 H Anion Gap 5.0 L BUN 15 Creatinine 0.9 Estimated GFR (MDRD) 63 L Glucose 89 Calcium 10.1 Total Bilirubin 0.7 AST 19 ALT 19 Alkaline Phosphatase 75 Total Protein 7.4 Albumin 4.7 Globulin 2.7 Albumin/Globulin Ratio 1.7 - Rads (name of study) Head CT. Relevant Findings:: Final report received, See rad report CT angiogram head and neck Relevant Findings:: Final report received, See rad report brain mri Relevant Findings:: Final report received, See rad report PD Medical Decision Making - ED course Complexity details: reviewed results, re-evaluated patient, considered differential, d/w patient ED course: Patient with left-sided facial paresthesias of unclear etiology. Symptoms have been present since yesterday. Not a tPA candidate. No large vessel occlusion. No acute findings on head CT or CT angiogram of the head and neck to explain her symptoms. No facial weakness. No acute findings on laboratory testing. Her symptoms have persisted in the emergency department. Therefore an MRI was ordered. There was a delay of care in the emergency department secondary to a long wait for MRI. The patient will be signed out to Dr. Mejia at change of shift to follow-up on MRI results. If her MRI does not show any evidence of acute stroke, feel that she can likely be discharged home to follow-up with her PCP. Patient does have a long styloid process on her CT angiogram head and neck that could be associated with Tunica-Biloxi's syndrome. As she was an MRI at the time of signout, I was not able to ask her about any throat pain or foreign body sensation with swallowing. This document was made in part using voice recognition software. While efforts are made to proofread this document, sound alike and grammatical errors may occur. Departure - Departure Clinical Impression: Paresthesia Condition: Stable Comments: PROCEDURE: Head WO INDICATIONS: L sided facial numbness TECHNIQUE: Noncontrast 4.5 mm thick angled axial sections acquired from the foramen magnum to the vertex. For radiation dose reduction, the following was used: automated exposure control, adjustment of mA and/or kV according to patient size. COMPARISON: None. FINDINGS: Image quality: Excellent. CSF spaces: Basal cisterns are patent. No extra-axial fluid collections. Ventricles are normal in size and shape. Brain: No midline shift. No intracranial masses or hemorrhage. Moon-white matter interface is normal. Skull and face: Calvarium and visualized facial bones are intact, without suspicious lesions. Sinuses: Visualized sinuses and mastoids are clear. IMPRESSION: No acute intracranial pathology. PROCEDURE: Angio Head/Neck INDICATIONS: L sided facial numbness TECHNIQUE: After the administration of intravenous contrast, 1 mm thick sections acquired from the aortic arch through the [place] of [place]. 3-dimensional eitnsda-ndfqncsef-hckrzcbtui (MIP) and/or volume rendering reformats were acquired of the central intracranial vasculature and neck separately. For radiation dose reduction, the following was used: automated exposure control, adjustment of mA and/or kV according to patient size. CONTRAST: 80ml omni 300 COMPARISON: CT head from the same date. FINDINGS: Image quality: Diagnostic. HEAD CT: CSF Spaces: Basal cisterns are patent. No extra-axial fluid collections. Ventricles are normal in size and shape. Brain: No significant abnormality is seen for scanning technique. Skull and face: Calvarium and visualized facial bones appear intact, without suspicious lesions. Incidental note made of the presence of a very long styloid process on the right. Sinuses: Visualized sinuses and mastoids are clear. HEAD CT ANGIOGRAPHY: Anterior circulation: Intracranial internal carotid arteries are normal in size and flow. The flow within the paired anterior cerebral arteries is normal and symmetric. The flow within the middle cerebral arteries is normal and symmetric. The anterior communicating artery is seen. No aneurysms are seen. Posterior circulation: Visualized portions of the vertebral arteries demonstrate normal caliber, and join to form a normal appearing basilar artery. Flow within the posterior cerebral arteries is normal and symmetric. No aneurysms are seen. NECK CT ANGIOGRAPHY: Carotid system: The great vessels demonstrate a conventional anatomy as they arise from the aortic arch. The origins of the common carotid arteries appear patent. The common carotid arteries demonstrate normal caliber and courses. The bifurcation regions are both widely patent. The internal carotid arteries demonstrate normal calibers and courses. Posterior circulation: The origins of the vertebral arteries both appear widely patent. The more superior extracranial portions of both vertebral arteries also demonstrate normal courses and calibers. They join to form a normal appearing basilar artery. Soft tissues: Visualized neck soft tissues demonstrate no suspicious abnormalities. Shot[place], likely reactive cervical lymph nodes. Bones: No suspicious bony lesions. Visualized cervical spine appears normally aligned. IMPRESSION: 1. No significant intracranial arterial abnormality is seen. 2. No significant abnormality is seen within the arteries of the neck. 3. Incidental note made of the presence of a very long styloid process on the right, which in rare cases can be associated with Tunica-Biloxi's syndrome. This is likely an incidental finding. The estimate of stenosis included in the report of the imaging study was calculated using the NASCET method Forms: PCP List
[2023-08-03 09:40] LABS: BASOPHILS % (AUTO) 0.4 %; EOSINOPHILS # (AUTO) 0.1 10^3/uL (0.0-0.7); EOSINOPHILS % (AUTO) 0.9 %; HCT - HEMATOCRIT 42.4 % (37.0-47.0); HGB - HEMOGLOBIN 14.1 g/dL (12.0-16.0); LYMPHOCYTES # (AUTO) 1.7 10^3/uL (1.5-3.5); LYMPHOCYTES % (AUTO) 24.5 %; MEAN CORPUSCULAR HEMOGLOBIN 30.5 pg (27.0-31.0); MEAN CORPUSCULAR HGB CONC 33.3 g/dL (32.0-36.0); MEAN CORPUSCULAR VOLUME 91.6 fL (81.0-99.0); MEAN PLATELET VOLUME 9.9 fL (7.9-10.8); MONOCYTES # (AUTO) 0.4 10^3/uL (0.0-1.0); MONOCYTES % (AUTO) 5.4 %; NEUTROPHILS # (AUTO) 4.8 10^3/uL (1.5-6.6); NEUTROPHILS % (AUTO) 68.4 %; PLT - PLATELET COUNT 222 10^3/uL (130-450); RED BLOOD COUNT 4.63 10^6/uL (4.20-5.40)
[2023-08-03 09:58] LABS: ALBUMIN 4.7 g/dL (3.2-5.5); ALBUMIN/GLOBULIN RATIO 1.7 (1.0-2.2); BILIRUBIN,TOTAL 0.7 mg/dL (0.2-1.0); CALCIUM 10.1 mg/dL (8.5-10.3); CREATININE 0.9 mg/dL (0.6-1.3); POTASSIUM 3.4 mmol/L (3.5-4.5); TOTAL PROTEIN 7.4 g/dL (6.4-8.9)
[2023-08-03] MEDS ORDERED: iohexoL-300 100 ML VIAL ONE (10:20)
--- NOTE | 2023-08-03 11:04 | CT Report ---
PROCEDURE: Head WO INDICATIONS: L sided facial numbness TECHNIQUE: Noncontrast 4.5 mm thick angled axial sections acquired from the foramen magnum to the vertex. For r adiation dose reduction, the following was used: automated exposure control, adjustment of mA and/or kV according to patient size. COMPARISON: None. FINDINGS: Image quality: Excellent. CSF spaces: Basal cisterns are patent. No extra-axial fluid collections. Ventricles are normal in size and shape. Brain: No midline shift. No intracranial masses or hemorrhage. Moon-white matter interface is norm al. Skull and face: Calvarium and visualized facial bones are intact, without suspicious lesions. Sinuses: Visualized sinuses and mastoids are clear. IMPRESSION: No acute intracranial pathology. Reviewed by: Dinesh Silva MD on 08/03/2023 11:03 AM PDT Approved by: Dinesh Silva MD on 08/03/2023 11:03 AM PDT Station ID: [id number]
--- NOTE | 2023-08-03 11:10 | CT Report ---
PROCEDURE: Angio Head/Neck INDICATIONS: L sided facial numbness TECHNIQUE: After the administration of intravenous contrast, 1 mm thick sections acquired from the aortic arch t hrough the [place] of [place]. 3-dimensional ejnrecf-zzzprywep-dcjedwinvg (MIP) and/or volume renderin g reformats were acquired of the central intracranial vasculature and neck separately. For radiation dose reduction, the following was used: automated exposure control, adjustment of mA and/or kV acco rding to patient size. CONTRAST: 80ml omni 300 COMPARISON: CT head from the same date. FINDINGS: Image quality: Diagnostic. HEAD CT: CSF Spaces: Basal cisterns are patent. No extra-axial fluid collections. Ventricles are normal in size and shape. Brain: No significant abnormality is seen for scanning technique. Skull and face: Calvarium and visualized facial bones appear intact, without suspicious lesions. In cidental note made of the presence of a very long styloid process on the right. Sinuses: Visualized sinuses and mastoids are clear. HEAD CT ANGIOGRAPHY: Anterior circulation: Intracranial internal carotid arteries are normal in size and flow. The flow within the paired anterior cerebral arteries is normal and symmetric. The flow within the middle cer ebral arteries is normal and symmetric. The anterior communicating artery is seen. No aneurysms are seen. Posterior circulation: Visualized portions of the vertebral arteries demonstrate normal caliber, and join to form a normal appearing basilar artery. Flow within the posterior cerebral arteries is norm al and symmetric. No aneurysms are seen. NECK CT ANGIOGRAPHY: Carotid system: The great vessels demonstrate a conventional anatomy as they arise from the aortic a rch. The origins of the common carotid arteries appear patent. The common carotid arteries demonstr ate normal caliber and courses. The bifurcation regions are both widely patent. The internal caroti d arteries demonstrate normal calibers and courses. Posterior circulation: The origins of the vertebral arteries both appear widely patent. The more soliz perior extracranial portions of both vertebral arteries also demonstrate normal courses and calibers. They join to form a normal appearing basilar artery. Soft tissues: Visualized neck soft tissues demonstrate no suspicious abnormalities. [place], likely reactive cervical lymph nodes. Bones: No suspicious bony lesions. Visualized cervical spine appears normally aligned. IMPRESSION: 1. No significant intracranial arterial abnormality is seen. 2. No significant abnormality is seen within the arteries of the neck. 3. Incidental note made of the presence of a very long styloid process on the right, which in rare ca ses can be associated with [place]'s syndrome. This is likely an incidental finding. The estimate of stenosis included in the report of the imaging study was calculated using the NASCET method Reviewed by: Dinesh Silva MD on 08/03/2023 11:08 AM PDT Approved by: Dinesh Silva MD on 08/03/2023 11:08 AM PDT Station ID: [id number]
[2023-08-03] MEDS: iohexoL-300 100 ML VIAL IVP ONE (12:42)
--- NOTE | 2023-08-03 18:14 | MRI Report ---
PROCEDURE: Brain WO INDICATIONS: L facial tingling TECHNIQUE: Noncontrast axial T1 spin echo, axial T2 fast spin echo, sagittal and axial FLAIR, coronal T2 fast sp in echo, axial gradient echo, axial diffusion and ADC through the brain. COMPARISON: CT head from the same date. FINDINGS: Image quality: Excellent. CSF Spaces: Basal cisterns are patent. No extra-axial fluid collections. Ventricles are normal in size and shape. Brain: No intracranial masses or hemorrhage. Moon/white matter interface is normal. Brainstem appe ars normal. Diffusion-weighted images demonstrate no acute ischemic insult. No chronic ischemic ins ults. Normal intravascular flow voids are present. There is age-related volume loss and mild to mod erate, age-appropriate periventricular white matter change consistent with small vessel ischemic bowers ge. Skull and face: Calvarium has normal marrow signal. Orbits appear normal. Sinuses: Sinuses and mastoids are clear. IMPRESSION: 1. No acute intracranial process. 2. Age-related volume loss and age appropriate, mild to moderate small vessel ischemic change. Reviewed by: Dinesh Silva MD on 08/03/2023 6:13 PM PDT Approved by: Dinesh Silva MD on 08/03/2023 6:13 PM PDT Station ID: [id number]
--- NOTE | 2023-08-03 18:20 | ED Physician Documentation ---
ED Addendum - Addendum Addendum: 08/03/23 18:[address] Warner at 6 PM shift change pending results of MRI. MRI now done and unremarkable. She did have some age-related disease but no stroke specifically. She was reevaluated at the bedside. No new complaints. No facial droop. Discussed with her that this could be early Byers's palsy in which case she should return for specific treatment for that. Disposition: Discharged home Condition: Stable Diagnosis: 1. Left facial numbness
[2023-08-03 18:41] VITALS: BP 166/94; O2SAT 100
== END 2023-08-03 18:23 | disposition home or self-care (01) ==
LOC: ED 08:35
DX: R20.2 Paresthesia of skin (principal); R20.0 Anesthesia of skin
CPT/HCPCS: 36415; 70450; 70496; 70498; 70551; 80053; 85025; 93005; 99284; Q9967

== ENCOUNTER 2023-08-08 14:58 | Outpatient (CLI) | payer OTHER ==
--- NOTE | 2023-08-10 10:58 | Mammography Report ---
BILATERAL DIGITAL SCREENING MAMMOGRAM 3D/2D: 08/08/2023 CLINICAL: Routine screening. Comparison is made to exams dated: 07/16/2020 mammogram, 09/29/2016 mammogram, 01/14/2015 mammogram, an d 11/20/2013 mammogram - [facility]. There are scattered areas of fibroglandular density in both breasts (category b / 25%-50% glandular t issue). No significant masses, calcifications, or other findings are seen in either breast. There has been no significant interval change. IMPRESSION: NEGATIVE There is no mammographic evidence of malignancy. A 1 year screening mammogram is recommended. Based on the Tyrer Cuzick model (a risk assessment model) the patient's lifetime risk is 4.5% and her 10 year risk is 1.9%. According to the ACR, ACS, and NCCN guidelines, an annual breast MRI exam asha g with mammogram is recommended if the patient's lifetime risk is 20% or greater. This exam was interpreted at Station ID: [id number]. NOTE: For mammograms, a report in lay terms will be sent to the patient. Approximately 15% of breast malignancies will not be visualized mammographically. In the management of a palpable breast mass, a negative mammogram must not discourage biopsy of a clinically suspicious lesion. Electronically Signed By: Kostas ramirez/taryn:08/09/2023 16:30:03 letter sent: No_Letter ACR BI-RADS Category 1: Negative 3341F PARENCHYMAL PATTERN: (A) - The breast(s) demonstrate(s) scattered fibroglandular densities. BI-RADS CATEGORY: (1) - 1 RECOMMENDATION: (ANNUAL) - Recommend routine annual screening mammography. [id number] 1 year screening LATERALITY: (B)
== END 2023-08-08 14:59 | disposition home or self-care (01) ==
LOC: DI 14:58
DX: Z12.31 Encounter for screening mammogram for malignant neoplasm of breast (principal); R92.323 Mammographic fibroglandular density, bilateral breasts

== ENCOUNTER 2023-09-21 07:15 | Outpatient (CLI) | payer OTHER | END 2023-09-21 07:16 | disposition home or self-care (01) | LOC: LAB.N 07:15 | PROVIDERS: ATTEND Physician Assistant | DX: N10 Acute pyelonephritis (principal) | CPT/HCPCS: 87086 ==